=== PATIENT | female | born 1980 | race Caucasian/White ===

== ENCOUNTER 2019-07-22 16:39 | Inpatient (IN) | payer SELFPAY ==
--- NOTE | 2019-07-22 16:56 | EDM.PDOC ---
<Venkatesh Marroquin - Last Filed: 07/22/19 20:07> ED HPI GENERAL MEDICAL PROBLEM - General Chief Complaint: General Stated Complaint: LUMP IN RT BREAST, BLOOD IN URINE Time Seen by Provider: 07/22/19 16:45 - Related Data Allergies Allergy/AdvReac Type Severity Reaction Status Date / Time alprazolam [From Xanax] Allergy Swelling Verified 07/22/19 22:29 aripiprazole [From Abilify] Allergy Irritabilit Verified 07/22/19 22:29 y quetiapine [From Seroquel] Allergy Other Verified 07/22/19 22:29 Home Meds: Home Meds . [No Known Home Meds] 07/22/19 [History] Course - Vital Signs Text/Narrative:: Patient's emergency department course is been relatively unremarkable lipase came [place] [facility] CT abdomen and pelvis was remarkable for gallbladder wall thickening and isolated gallstone along with pericholecystic fluid there was no intraductal dilatation case was discussed with general surgery was consult. I also discussed case with Hospital graciously accepted patient Last Recorded V/S: Last Vital Signs Temp 98.4 F 07/23/19 07:47 Pulse 72 07/23/19 07:47 Resp 18 07/23/19 07:47 BP 113/69 07/23/19 07:47 Pulse Ox 98 07/23/19 07:47 - Orders/Labs/Meds Orders: Active Orders 24 hr Category Date Time Status CULTURE URINE [RM] Stat Lab 07/22/19 19:10 Received Medication Orders Ciprofloxacin/Dextrose 400 mg/ (Premix) 200 mls @ 200 mls/hr IV Q12H [facility] Last Admin: 07/22/19 20:42 Dose: 200 mls/hr Metronidazole 500 mg/ Premix 100 mls @ 100 mls/hr IV QID [facility] Last Admin: 07/23/19 05:33 Dose: 100 mls/hr Infusion: 07/23/19 00:42 Dose: 100 mls/hr Admin: 07/22/19 23:42 Dose: 100 mls/hr Sodium Chloride (Normal Saline) 1,000 mls @ 999 mls/hr IV BOLUS CINDY Sodium Chloride (Normal Saline) 1,000 mls @ 200 mls/hr IV ASDIRECTED [facility] Last Admin: 07/23/19 06:39 Dose: 200 mls/hr Infusion: 07/23/19 06:21 Dose: 200 mls/hr Admin: 07/23/19 01:21 Dose: 200 mls/hr Morphine Sulfate (Morphine) 2 mg IVPUSH Q2H PRN PRN Reason: Pain (severe 7-10) Stop: 07/23/19 20:36 Last Admin: 07/23/19 04:12 Dose: 2 mg Ondansetron HCl (Zofran) 4 mg IVPUSH Q4H PRN PRN Reason: Nausea Last Admin: 07/23/19 04:13 Dose: 4 mg Labs: Laboratory Tests 07/22/19 07/22/19 07/22/19 Range/Units 17:13 17:13 17:13 WBC 8.41 (4.0-11.0) K/uL RBC 4.60 (4.30-5.90) M/uL Hgb 13.1 (12.0-16.0) g/dL Hct 40.3 (36.0-46.0) % MCV 87.6 (80.0-98.0) fL MCH 28.5 (27.0-32.0) pg MCHC 32.5 (31.0-37.0) g/dL RDW Std Deviation 44.2 (28.0-62.0) fl RDW Coeff of Julien 14 (11.0-15.0) % Plt Count 298 (150-400) K/uL MPV 11.30 (7.40-12.00) fL Neut % (Auto) 59.8 (48.0-80.0) % Lymph % (Auto) 29.6 (16.0-40.0) % [place] % (Auto) 7.1 (0.0-15.0) % Eos % (Auto) 2.9 (0.0-7.0) % Baso % (Auto) 0.6 (0.0-1.5) % Neut # (Auto) 5.0 (1.4-5.7) K/uL Lymph # (Auto) 2.5 H (0.6-2.4) K/uL [place] # (Auto) 0.6 (0.0-0.8) K/uL Eos # (Auto) 0.2 (0.0-0.7) K/uL Baso # (Auto) 0.1 (0.0-0.1) K/uL Nucleated RBC % 0.0 /100WBC Nucleated RBCs # 0 K/uL Sodium 137 (136-145) mmol/L Potassium 3.4 L (3.5-5.1) mmol/L Chloride 104 (98-107) mmol/L Carbon Dioxide 23.5 (21.0-32.0) mmol/L BUN 10 (7.0-18.0) mg/dL Creatinine 0.9 (0.6-1.0) mg/dL Est Cr Clr Drug Dosing 93.45 mL/min Estimated GFR (MDRD) > 60.0 ml/min Glucose 91 (74-106) mg/dL Calcium 8.6 (8.5-10.1) mg/dL Total Bilirubin 3.7 H (0.2-1.0) mg/dL AST 294 H (15-37) IU/L ALT 335 H (14-63) IU/L Alkaline Phosphatase 152 H (46-116) U/L Total Protein 7.2 (6.4-8.2) g/dL Albumin 3.5 (3.4-5.0) g/dL Globulin 3.7 (2.6-4.0) g/dL Albumin/Globulin Ratio 0.9 (0.9-1.6) Lipase 7766 H (73-393) U/L Urine Color Urine Appearance Urine pH (5.0-8.0) Ur Specific [place] (1.001-1.035) Urine Protein (NEGATIVE) mg/dL Urine Glucose (UA) (NEGATIVE) mg/dL Urine Ketones (NEGATIVE) mg/dL Urine Occult Blood (NEGATIVE) Urine Nitrite (NEGATIVE) Urine Bilirubin (NEGATIVE) Urine Ictotest Urine Urobilinogen (<2.0) EU/dL Ur Leukocyte Esterase (NEGATIVE) Urine RBC (0-2/HPF) Urine WBC (0-5/HPF) Ur Epithelial Cells (NONE-FEW) Urine Bacteria (NEGATIVE) Urine Mucus (NONE-MOD) 07/22/19 Range/Units 19:10 WBC (4.0-11.0) K/uL RBC (4.30-5.90) M/uL Hgb (12.0-16.0) g/dL Hct (36.0-46.0) % MCV (80.0-98.0) fL MCH (27.0-32.0) pg MCHC (31.0-37.0) g/dL RDW Std Deviation (28.0-62.0) fl RDW Coeff of Julien (11.0-15.0) % Plt Count (150-400) K/uL MPV (7.40-12.00) fL Neut % (Auto) (48.0-80.0) % Lymph % (Auto) (16.0-40.0) % [place] % (Auto) (0.0-15.0) % Eos % (Auto) (0.0-7.0) % Baso % (Auto) (0.0-1.5) % Neut # (Auto) (1.4-5.7) K/uL Lymph # (Auto) (0.6-2.4) K/uL [place] # (Auto) (0.0-0.8) K/uL Eos # (Auto) (0.0-0.7) K/uL Baso # (Auto) (0.0-0.1) K/uL Nucleated RBC % /100WBC Nucleated RBCs # K/uL Sodium (136-145) mmol/L Potassium (3.5-5.1) mmol/L Chloride (98-107) mmol/L Carbon Dioxide (21.0-32.0) mmol/L BUN (7.0-18.0) mg/dL Creatinine (0.6-1.0) mg/dL Est Cr Clr Drug Dosing mL/min Estimated GFR (MDRD) ml/min Glucose (74-106) mg/dL Calcium (8.5-10.1) mg/dL Total Bilirubin (0.2-1.0) mg/dL AST (15-37) IU/L ALT (14-63) IU/L Alkaline Phosphatase (46-116) U/L Total Protein (6.4-8.2) g/dL Albumin (3.4-5.0) g/dL Globulin (2.6-4.0) g/dL Albumin/Globulin Ratio (0.9-1.6) Lipase (73-393) U/L Urine Color YELLOW Urine Appearance HAZY Urine pH 5.0 (5.0-8.0) Ur Specific [place] 1.010 (1.001-1.035) Urine Protein NEGATIVE (NEGATIVE) mg/dL Urine Glucose (UA) NEGATIVE (NEGATIVE) mg/dL Urine Ketones NEGATIVE (NEGATIVE) mg/dL Urine Occult Blood NEGATIVE (NEGATIVE) Urine Nitrite NEGATIVE (NEGATIVE) Urine Bilirubin SMALL H (NEGATIVE) Urine Ictotest POSITIVE Urine Urobilinogen 0.2 (<2.0) EU/dL Ur Leukocyte Esterase TRACE H (NEGATIVE) Urine RBC 0-1 (0-2/HPF) Urine WBC 1-3 (0-5/HPF) Ur Epithelial Cells FEW (NONE-FEW) Urine Bacteria FEW (NEGATIVE) Urine Mucus LIGHT (NONE-MOD) Meds: Medications Generic Name Dose Route Start Last Admin Trade Name Freq PRN Reason Stop Dose Admin Ciprofloxacin/Dextrose 400 mg/ 200 mls @ 200 mls/hr 07/22/19 20:45 07/22/19 20:42 Premix IV 200 mls/hr Q12H CINDY Administration Metronidazole 500 mg/ Premix 100 mls @ 100 mls/hr 07/23/19 00:00 07/23/19 05: 33 IV 100 mls/hr QID CINYD Administration Sodium Chloride 1,000 mls @ 999 mls/hr 07/22/19 20:45 Normal Saline IV BOLUS CINDY Sodium Chloride 1,000 mls @ 200 mls/hr 07/22/19 20:45 07/23/19 06:39 Normal Saline IV 200 mls/hr ASDIRECTED CINDY Administration Morphine Sulfate 2 mg 07/22/19 20:35 07/23/19 04:12 Morphine IVPUSH 07/23/19 20:36 2 mg Q2H PRN Administration Pain (severe 7-10) Ondansetron HCl 4 mg 07/22/19 20:35 07/23/19 04:13 Zofran IVPUSH 4 mg Q4H PRN Administration Nausea Discontinued Medications Generic Name Dose Route Start Last Admin Trade Name Freq PRN Reason Stop Dose Admin Hydromorphone HCl 1 mg 07/22/19 20:08 07/22/19 20:14 Dilaudid IVPUSH 07/22/19 20:09 1 mg ONETIME ONE Administration Sodium Chloride 1,000 mls @ 999 mls/hr 07/22/19 18:19 07/22/19 18:30 Normal Saline IV 07/22/19 19:19 999 mls/hr STAT ONE Administration Sodium Chloride 1,000 mls @ 999 mls/hr 07/22/19 20:07 07/22/19 20:14 Normal Saline IV 07/22/19 21:07 999 mls/hr .Bolus ONE Administration Iopamidol 100 ml 07/22/19 19:04 07/22/19 19:05 Isovue Multipack-370 (76%) IVPUSH 07/22/19 19:05 100 ml ONETIME STA Administration Ketorolac Tromethamine 30 mg 07/22/19 18:19 07/22/19 18:30 Toradol IVPUSH 07/22/19 18:20 30 mg ONETIME ONE Administration Ondansetron HCl 4 mg 07/22/19 17:00 07/22/19 17:41 Zofran Odt PO 07/22/19 17:01 4 mg ONETIME ONE Administration Ondansetron HCl 4 mg 07/22/19 20:08 07/22/19 20:14 Zofran IVPUSH 07/22/19 20:09 4 mg ONETIME ONE Administration Departure - Departure Time of Disposition: 20:10 Disposition: Admitted As Inpatient 68 Condition: Good Clinical Impression: Pancreatitis, Cholecystitis - Discharge Information - My Orders Last 24 Hours: My Active Orders 07/22/19 19:10 CULTURE URINE [RM] Stat - Assessment/Plan Last 24 Hours: My Active Orders 07/22/19 19:10 CULTURE URINE [RM] Stat <Vivian Pedraza - Last Filed: 07/23/19 08:03> ED HPI GENERAL MEDICAL PROBLEM - General Source of Information: Reports: Patient History Limitations: Reports: No Limitations - History of Present Illness INITIAL COMMENTS - FREE TEXT/NARRATIVE: HISTORY AND PHYSICAL: History of present illness: Patient is a 38 year-old female who presents to the emergency room today with complaints of nausea, vomiting and discolored stools. She reports over the past 2 days she has had some mild nausea and one episode of vomiting earlier today. She did notice when she voided yesterday that she had some blood-tinged colored urine which was concerning to her. She states that the urine color has improved today as she has been drinking more water. While at work she states she generally felt nauseated and did have one episode of vomiting. 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 Patient denies any fever, chills, headache, change in vision, syncope or near syncope. Denies any chest pain, back pain, shortness of breath or cough. Denies any abdominal pain, diarrhea, constipation or dysuria. Has not noted any blood stool. Patient has been eating and drinking appropriately. Review of systems: As per history of present illness and below otherwise all systems reviewed and negative. Past medical history: As per history of present illness and as reviewed below otherwise noncontributory. Surgical history: As per history of present illness and as reviewed below otherwise noncontributory. Social history: See social history for further information Family history: As per history of present illness and as reviewed below otherwise noncontributory. Physical exam: General: Well-developed and well-nourished 38-year-old female. Alert and oriented. Nontoxic appearing and in no acute distress. HEENT: Atraumatic, normocephalic, pupils equal and reactive bilaterally, negative for conjunctival pallor or scleral icterus, mucous membranes moist, TMs normal bilaterally, throat clear, neck supple, nontender, trachea midline. No drooling or trismus noted. No meningeal signs. No hot potato voice noted. Lungs: Clear to auscultation, breath sounds equal bilaterally, chest nontender. Heart: S1S2, regular rate and rhythm without overt murmur Abdomen: Soft, nondistended, nontender. Negative for masses or hepatosplenomegaly. Negative for costovertebral tenderness. Pelvis: Stable nontender. Skin: Intact, warm, dry. No lesions or rashes noted. Extremities: Atraumatic, moves all extremities per self without difficulty or deficits, negative for cords or calf pain. Neurovascular unremarkable. Neuro: Awake, alert, oriented. Cranial nerves II through XII unremarkable. Cerebellum unremarkable. Motor and sensory unremarkable throughout. Exam nonfocal. Notes: On a secondary note the patient does want to mention that she has noticed a small lump to her right breast for approximately 1-2 months. She states that her main concern today was her nausea, vomiting and discolored stools but since she was in the emergency room did want to bring it to our attention. The area of concern is at the 8-o'clock position and is movable, nontender to palpation. No surrounding erythema, dimpling or skin disruption is noted. As this is not an acute finding and does not appear to be needing an ultrasound at this time, I did give her information of providers that she should follow-up with for this manner. Patient's physical exam is within normal limits, no abdominal tenderness with palpation. She does have some mild nausea, will give zofran and do basic labs. Dr Marroquin was briefed on this patient and he will follow the labs results and disposition appropriately. Diagnostics: CBC, CMP, UA, HCGU Therapeutics: Zofran Impression: Cholecystitis Pancreatitis Plan: Inpatient admission Definitive disposition and diagnosis as appropriate pending reevaluation and review of above. Past Medical History Psychiatric History: Reports: Anxiety Social & Family History - Family History Family Medical History: Noncontributory ED ROS GENERAL - Review of Systems Review Of Systems: ROS reveals no pertinent complaints other than HPI. ED EXAM, GENERAL - Physical Exam Exam: See Below (See dictation) Course - Vital Signs Last Recorded V/S: Last Vital Signs Temp 98.4 F 07/23/19 07:47 Pulse 72 07/23/19 07:47 Resp 18 07/23/19 07:47 BP 113/69 07/23/19 07:47 Pulse Ox 98 07/23/19 07:47 - Orders/Labs/Meds Labs: Laboratory Tests 07/22/19 07/22/19 07/22/19 Range/Units 17:13 17:13 17:13 WBC 8.41 (4.0-11.0) K/uL RBC 4.60 (4.30-5.90) M/uL Hgb 13.1 (12.0-16.0) g/dL Hct 40.3 (36.0-46.0) % MCV 87.6 (80.0-98.0) fL MCH 28.5 (27.0-32.0) pg MCHC 32.5 (31.0-37.0) g/dL RDW Std Deviation 44.2 (28.0-62.0) fl RDW Coeff of Julien 14 (11.0-15.0) % Plt Count 298 (150-400) K/uL MPV 11.30 (7.40-12.00) fL Neut % (Auto) 59.8 (48.0-80.0) % Lymph % (Auto) 29.6 (16.0-40.0) % [place] % (Auto) 7.1 (0.0-15.0) % Eos % (Auto) 2.9 (0.0-7.0) % Baso % (Auto) 0.6 (0.0-1.5) % Neut # (Auto) 5.0 (1.4-5.7) K/uL Lymph # (Auto) 2.5 H (0.6-2.4) K/uL [place] # (Auto) 0.6 (0.0-0.8) K/uL Eos # (Auto) 0.2 (0.0-0.7) K/uL Baso # (Auto) 0.1 (0.0-0.1) K/uL Nucleated RBC % 0.0 /100WBC Nucleated RBCs # 0 K/uL Sodium 137 (136-145) mmol/L Potassium 3.4 L (3.5-5.1) mmol/L Chloride 104 (98-107) mmol/L Carbon Dioxide 23.5 (21.0-32.0) mmol/L BUN 10 (7.0-18.0) mg/dL Creatinine 0.9 (0.6-1.0) mg/dL Est Cr Clr Drug Dosing 93.45 mL/min Estimated GFR (MDRD) > 60.0 ml/min Glucose 91 (74-106) mg/dL Calcium 8.6 (8.5-10.1) mg/dL Total Bilirubin 3.7 H (0.2-1.0) mg/dL AST 294 H (15-37) IU/L ALT 335 H (14-63) IU/L Alkaline Phosphatase 152 H (46-116) U/L Total Protein 7.2 (6.4-8.2) g/dL Albumin 3.5 (3.4-5.0) g/dL Globulin 3.7 (2.6-4.0) g/dL Albumin/Globulin Ratio 0.9 (0.9-1.6) Lipase 7766 H (73-393) U/L Urine Color Urine Appearance Urine pH (5.0-8.0) Ur Specific [place] (1.001-1.035) Urine Protein (NEGATIVE) mg/dL Urine Glucose (UA) (NEGATIVE) mg/dL Urine Ketones (NEGATIVE) mg/dL Urine Occult Blood (NEGATIVE) Urine Nitrite (NEGATIVE) Urine Bilirubin (NEGATIVE) Urine Ictotest Urine Urobilinogen (<2.0) EU/dL Ur Leukocyte Esterase (NEGATIVE) Urine RBC (0-2/HPF) Urine WBC (0-5/HPF) Ur Epithelial Cells (NONE-FEW) Urine Bacteria (NEGATIVE) Urine Mucus (NONE-MOD) 07/22/19 Range/Units 19:10 WBC (4.0-11.0) K/uL RBC (4.30-5.90) M/uL Hgb (12.0-16.0) g/dL Hct (36.0-46.0) % MCV (80.0-98.0) fL MCH (27.0-32.0) pg MCHC (31.0-37.0) g/dL RDW Std Deviation (28.0-62.0) fl RDW Coeff of Julien (11.0-15.0) % Plt Count (150-400) K/uL MPV (7.40-12.00) fL Neut % (Auto) (48.0-80.0) % Lymph % (Auto) (16.0-40.0) % [place] % (Auto) (0.0-15.0) % Eos % (Auto) (0.0-7.0) % Baso % (Auto) (0.0-1.5) % Neut # (Auto) (1.4-5.7) K/uL Lymph # (Auto) (0.6-2.4) K/uL [place] # (Auto) (0.0-0.8) K/uL Eos # (Auto) (0.0-0.7) K/uL Baso # (Auto) (0.0-0.1) K/uL Nucleated RBC % /100WBC Nucleated RBCs # K/uL Sodium (136-145) mmol/L Potassium (3.5-5.1) mmol/L Chloride (98-107) mmol/L Carbon Dioxide (21.0-32.0) mmol/L BUN (7.0-18.0) mg/dL Creatinine (0.6-1.0) mg/dL Est Cr Clr Drug Dosing mL/min Estimated GFR (MDRD) ml/min Glucose (74-106) mg/dL Calcium (8.5-10.1) mg/dL Total Bilirubin (0.2-1.0) mg/dL AST (15-37) IU/L ALT (14-63) IU/L Alkaline Phosphatase (46-116) U/L Total Protein (6.4-8.2) g/dL Albumin (3.4-5.0) g/dL Globulin (2.6-4.0) g/dL Albumin/Globulin Ratio (0.9-1.6) Lipase (73-393) U/L Urine Color YELLOW Urine Appearance HAZY Urine pH 5.0 (5.0-8.0) Ur Specific [place] 1.010 (1.001-1.035) Urine Protein NEGATIVE (NEGATIVE) mg/dL Urine Glucose (UA) NEGATIVE (NEGATIVE) mg/dL Urine Ketones NEGATIVE (NEGATIVE) mg/dL Urine Occult Blood NEGATIVE (NEGATIVE) Urine Nitrite NEGATIVE (NEGATIVE) Urine Bilirubin SMALL H (NEGATIVE) Urine Ictotest POSITIVE Urine Urobilinogen 0.2 (<2.0) EU/dL Ur Leukocyte Esterase TRACE H (NEGATIVE) Urine RBC 0-1 (0-2/HPF) Urine WBC 1-3 (0-5/HPF) Ur Epithelial Cells FEW (NONE-FEW) Urine Bacteria FEW (NEGATIVE) Urine Mucus LIGHT (NONE-MOD) Meds: Medications Generic Name Dose Route Start Last Admin Trade Name Freq PRN Reason Stop Dose Admin Ciprofloxacin/Dextrose 400 mg/ 200 mls @ 200 mls/hr 07/22/19 20:45 07/22/19 20:42 Premix IV 200 mls/hr Q12H CINDY Administration Metronidazole 500 mg/ Premix 100 mls @ 100 mls/hr 07/23/19 00:00 07/23/19 05: 33 IV 100 mls/hr QID CINDY Administration Sodium Chloride 1,000 mls @ 999 mls/hr 07/22/19 20:45 Normal Saline IV BOLUS CINDY Sodium Chloride 1,000 mls @ 200 mls/hr 07/22/19 20:45 07/23/19 06:39 Normal Saline IV 200 mls/hr ASDIRECTED CINDY Administration Morphine Sulfate 2 mg 07/22/19 20:35 07/23/19 04:12 Morphine IVPUSH 07/23/19 20:36 2 mg Q2H PRN Administration Pain (severe 7-10) Ondansetron HCl 4 mg 07/22/19 20:35 07/23/19 04:13 Zofran IVPUSH 4 mg Q4H PRN Administration Nausea Discontinued Medications Generic Name Dose Route Start Last Admin Trade Name Freq PRN Reason Stop Dose Admin Hydromorphone HCl 1 mg 07/22/19 20:08 07/22/19 20:14 Dilaudid IVPUSH 07/22/19 20:09 1 mg ONETIME ONE Administration Sodium Chloride 1,000 mls @ 999 mls/hr 07/22/19 18:19 07/22/19 18:30 Normal Saline IV 07/22/19 19:19 999 mls/hr STAT ONE Administration Sodium Chloride 1,000 mls @ 999 mls/hr 07/22/19 20:07 07/22/19 20:14 Normal Saline IV 07/22/19 21:07 999 mls/hr .Bolus ONE Administration Iopamidol 100 ml 07/22/19 19:04 07/22/19 19:05 Isovue Multipack-370 (76%) IVPUSH 07/22/19 19:05 100 ml ONETIME STA Administration Ketorolac Tromethamine 30 mg 07/22/19 18:19 07/22/19 18:30 Toradol IVPUSH 07/22/19 18:20 30 mg ONETIME ONE Administration Ondansetron HCl 4 mg 07/22/19 17:00 07/22/19 17:41 Zofran Odt PO 07/22/19 17:01 4 mg ONETIME ONE Administration Ondansetron HCl 4 mg 07/22/19 20:08 07/22/19 20:14 Zofran IVPUSH 07/22/19 20:09 4 mg ONETIME ONE Administration
[2019-07-22] MEDS ORDERED: Ondansetron 4 MG Tab.DIS PO ONE (17:00)
[2019-07-22 17:53] LABS: BLOOD UREA NITROGEN,BUN 10 mg/dL (7.0-18.0); CARBON DIOXIDE,CO2 23.5 mmol/L (21.0-32.0); CHLORIDE,CL 104 mmol/L (98-107); GLUCOSE RANDOM 91 mg/dL (74-106); POTASSIUM,K 3.4 mmol/L (3.5-5.1); SODIUM,NA 137 mmol/L (136-145)
[2019-07-22] MEDS ORDERED: Ketorolac 30 MG/ML SDV IVPUSH ONE (18:19)
[2019-07-22] MEDS ORDERED: Sodium Chloride 0.9% 1,000 ML IV ONE ×2 (18:19→20:07)
[2019-07-22] MEDS ORDERED: Iopamidol 755 MG/ML 500 ML Multipack Bottle IVPUSH STA (19:04)
--- NOTE | 2019-07-22 19:43 | CT ---
Indication: Abe colored stool. Vomiting. Right breast lump. Technique: Multiple contiguous axial images were obtained from the lung bases through the symphysis pubis after the intravenous administration of 100 milliliters Isovue 370. Please note that all CT scans at this facility use dose modulation, iterative reconstruction, and/or weight-based dosing when appropriate to reduce radiation dose to as low as reasonably achievable. Comparison: None Findings: The lung bases are clear. No infiltrate, pleural effusion, or pneumothorax is identified. No definite right breast masses identified. A mammogram is recommended for the patient`s clinical symptoms. Heart is normal in size. No pericardial effusions identified. A gallstone is identified. Thickening of the wall of the gallbladder is identified. Pericholecystic free fluid is identified. No intrahepatic biliary ductal dilatation is identified. The spleen, pancreas, adrenals, and kidneys are normal. No hydronephrosis is identified. In the pelvis, the urinary bladder is normal. The uterus is grossly normal. The small and large bowel are normal in caliber. The appendix is normal in caliber. No free air or free fluid is identified within the abdomen or pelvis. The aorta is normal in caliber. No lytic or blastic lesions of the spine are identified. Impression: Thickening and abnormal enhancement of the wall of the gallbladder. Pericholecystic free fluid and gallstone are identified. No intrahepatic biliary ductal dilatation is identified. Consideration should be given to an ultrasound of the right upper quadrant. Mammography is recommended for the patient`s clinical symptoms of right breast mass. Please note that all CT scans at this facility use dose modulation, iterative reconstruction, and/or weight-based dosing when appropriate to reduce radiation dose to as low as reasonably achievable. Dictated by Khalida Beatty MD @ Jul 22 2019 7:39PM Signed by Dr. Khalida Beatty @ Jul 22 2019 7:41PM
[2019-07-22] MEDS ORDERED: Ondansetron 4 MG/2 ML SDV IVPUSH ONE (20:08)
[2019-07-22] MEDS ORDERED: HYDROmorphone 1 MG/ML Syringe IVPUSH ONE (20:08)
[2019-07-22] MEDS: Ciprofloxacin in D5W 400 MG in Premix Bag 1 BAG IV SCH ×2 (20:42)
--- NOTE | 2019-07-22 20:44 | PCM.HP.2 ---
H&P History of Present Illness - General Date of Service: 07/22/19 Admit Problem/Dx: Admission Diagnosis/Problem Admission Diagnosis/Problem Pancreatitis - History of Present Illness Initial Comments - Free Text/Narative: 38 yo female who presents to the ED with complaint of nausea and vomiting for past two day. She also reports RUQ pain for the past year. The pain occurs everyday after eating. She also reports diarrhea most days for the past year. She had attributed some of her symptoms to grieving from her husbands this year. She denies any fevers currently. - Related Data Allergies/Adverse Reactions: Allergies Allergy/AdvReac Type Severity Reaction Status Date / Time alprazolam [From Xanax] Allergy Swelling Verified 07/22/19 16:54 aripiprazole [From Abilify] Allergy Irritabilit Verified 07/22/19 16:54 y quetiapine [From Seroquel] Allergy Other Verified 07/22/19 16:54 Home Medications: Home Meds . [No Known Home Meds] 07/22/19 [History] Past Medical History Psychiatric History: Reports: Anxiety - Infectious Disease History Infectious Disease History: Reports: Chicken Pox Social & Family History - Family History Family Medical History: Noncontributory - Tobacco Use Smoking Status *Q: Light Tobacco Smoker Years of Tobacco use: 20 Packs/Tins Daily: 0.2 - Caffeine Use Caffeine Use: Reports: Coffee - Recreational Drug Use Recreational Drug Use: No H&P Review of Systems - Review of Systems: Review Of Systems: ROS reveals no pertinent complaints other than HPI. Exam - Exam Exam: See Below - Vital Signs Vital Signs: Last Vital Signs Temp 36.5 C 07/22/19 20:05 Pulse 72 07/22/19 20:05 Resp 18 07/22/19 20:05 BP 127/70 07/22/19 20:05 Pulse Ox 99 07/22/19 20:05 Weight: 88.451 kg - Exam General: Alert, Oriented HEENT: Mucosa Moist & [place] Neck: Supple Lungs: Clear to Auscultation, Normal Respiratory Effort Cardiovascular: Regular Rate, Regular Rhythm GI/Abdominal Exam: Normal Bowel Sounds, Soft, No Distention, Tender (RUQ) Extremities: Non-Tender, No Pedal Edema Skin: Warm, Dry, Intact - Patient Data Lab Results Last 24 hrs: Laboratory Results - last 24 hr 07/22/19 07/22/19 07/22/19 Range/Units 17:13 17:13 17:13 WBC 8.41 (4.0-11.0) K/uL RBC 4.60 (4.30-5.90) M/uL Hgb 13.1 (12.0-16.0) g/dL Hct 40.3 (36.0-46.0) % MCV 87.6 (80.0-98.0) fL MCH 28.5 (27.0-32.0) pg MCHC 32.5 (31.0-37.0) g/dL RDW Std Deviation 44.2 (28.0-62.0) fl RDW Coeff of Julien 14 (11.0-15.0) % Plt Count 298 (150-400) K/uL MPV 11.30 (7.40-12.00) fL Neut % (Auto) 59.8 (48.0-80.0) % Lymph % (Auto) 29.6 (16.0-40.0) % [place] % (Auto) 7.1 (0.0-15.0) % Eos % (Auto) 2.9 (0.0-7.0) % Baso % (Auto) 0.6 (0.0-1.5) % Neut # (Auto) 5.0 (1.4-5.7) K/uL Lymph # (Auto) 2.5 H (0.6-2.4) K/uL [place] # (Auto) 0.6 (0.0-0.8) K/uL Eos # (Auto) 0.2 (0.0-0.7) K/uL Baso # (Auto) 0.1 (0.0-0.1) K/uL Nucleated RBC % 0.0 /100WBC Nucleated RBCs # 0 K/uL Sodium 137 (136-145) mmol/L Potassium 3.4 L (3.5-5.1) mmol/L Chloride 104 (98-107) mmol/L Carbon Dioxide 23.5 (21.0-32.0) mmol/L BUN 10 (7.0-18.0) mg/dL Creatinine 0.9 (0.6-1.0) mg/dL Est Cr Clr Drug Dosing 93.45 mL/min Estimated GFR (MDRD) > 60.0 ml/min Glucose 91 (74-106) mg/dL Calcium 8.6 (8.5-10.1) mg/dL Total Bilirubin 3.7 H (0.2-1.0) mg/dL AST 294 H (15-37) IU/L ALT 335 H (14-63) IU/L Alkaline Phosphatase 152 H (46-116) U/L Total Protein 7.2 (6.4-8.2) g/dL Albumin 3.5 (3.4-5.0) g/dL Globulin 3.7 (2.6-4.0) g/dL Albumin/Globulin Ratio 0.9 (0.9-1.6) Lipase 7766 H (73-393) U/L Urine Color Urine Appearance Urine pH (5.0-8.0) Ur Specific [place] (1.001-1.035) Urine Protein (NEGATIVE) mg/dL Urine Glucose (UA) (NEGATIVE) mg/dL Urine Ketones (NEGATIVE) mg/dL Urine Occult Blood (NEGATIVE) Urine Nitrite (NEGATIVE) Urine Bilirubin (NEGATIVE) Urine Ictotest Urine Urobilinogen (<2.0) EU/dL Ur Leukocyte Esterase (NEGATIVE) Urine RBC (0-2/HPF) Urine WBC (0-5/HPF) Ur Epithelial Cells (NONE-FEW) Urine Bacteria (NEGATIVE) Urine Mucus (NONE-MOD) 07/22/19 Range/Units 19:10 WBC (4.0-11.0) K/uL RBC (4.30-5.90) M/uL Hgb (12.0-16.0) g/dL Hct (36.0-46.0) % MCV (80.0-98.0) fL MCH (27.0-32.0) pg MCHC (31.0-37.0) g/dL RDW Std Deviation (28.0-62.0) fl RDW Coeff of Julien (11.0-15.0) % Plt Count (150-400) K/uL MPV (7.40-12.00) fL Neut % (Auto) (48.0-80.0) % Lymph % (Auto) (16.0-40.0) % [place] % (Auto) (0.0-15.0) % Eos % (Auto) (0.0-7.0) % Baso % (Auto) (0.0-1.5) % Neut # (Auto) (1.4-5.7) K/uL Lymph # (Auto) (0.6-2.4) K/uL [place] # (Auto) (0.0-0.8) K/uL Eos # (Auto) (0.0-0.7) K/uL Baso # (Auto) (0.0-0.1) K/uL Nucleated RBC % /100WBC Nucleated RBCs # K/uL Sodium (136-145) mmol/L Potassium (3.5-5.1) mmol/L Chloride (98-107) mmol/L Carbon Dioxide (21.0-32.0) mmol/L BUN (7.0-18.0) mg/dL Creatinine (0.6-1.0) mg/dL Est Cr Clr Drug Dosing mL/min Estimated GFR (MDRD) ml/min Glucose (74-106) mg/dL Calcium (8.5-10.1) mg/dL Total Bilirubin (0.2-1.0) mg/dL AST (15-37) IU/L ALT (14-63) IU/L Alkaline Phosphatase (46-116) U/L Total Protein (6.4-8.2) g/dL Albumin (3.4-5.0) g/dL Globulin (2.6-4.0) g/dL Albumin/Globulin Ratio (0.9-1.6) Lipase (73-393) U/L Urine Color YELLOW Urine Appearance HAZY Urine pH 5.0 (5.0-8.0) Ur Specific [place] 1.010 (1.001-1.035) Urine Protein NEGATIVE (NEGATIVE) mg/dL Urine Glucose (UA) NEGATIVE (NEGATIVE) mg/dL Urine Ketones NEGATIVE (NEGATIVE) mg/dL Urine Occult Blood NEGATIVE (NEGATIVE) Urine Nitrite NEGATIVE (NEGATIVE) Urine Bilirubin SMALL H (NEGATIVE) Urine Ictotest POSITIVE Urine Urobilinogen 0.2 (<2.0) EU/dL Ur Leukocyte Esterase TRACE H (NEGATIVE) Urine RBC 0-1 (0-2/HPF) Urine WBC 1-3 (0-5/HPF) Ur Epithelial Cells FEW (NONE-FEW) Urine Bacteria FEW (NEGATIVE) Urine Mucus LIGHT (NONE-MOD) Result Diagrams: 07/22/19 17:13 07/22/19 17:13 Problem List Initiated/Reviewed/Updated: Yes Orders Last 24hrs: Active Orders 24 hr Category Date Time Status Patient Status [ADT] Stat ADT 07/22/19 20:11 Active Antiembolic Devices [RC] PER UNIT ROUTINE Care 07/22/19 20:35 Ordered Notify Provider Consults [RC] ASDIRECTED Care 07/22/19 20:13 Active Oxygen Therapy [RC] PRN Care 07/22/19 20:34 Ordered Up ad Meeta [RC] ASDIRECTED Care 07/22/19 20:34 Ordered VTE/DVT Education [RC] PER UNIT ROUTINE Care 07/22/19 20:34 Ordered Vital Signs [RC] Q4H Care 07/22/19 20:34 Ordered Consult to Physician [CONS] Stat Cons 07/22/19 20:12 Active Nothing per Oral Now Diet [DIET] Diet 07/22/19 Breakfast Ordered Abdomen Comp [US] AM Exams 07/23/19 05:11 Ordered CBC WITH AUTO DIFF [HEME] AM Lab 07/23/19 05:11 Ordered COMPREHENSIVE METABOLIC PN,CMP [CHEM] AM Lab 07/23/19 05:11 Ordered CULTURE URINE [RM] Stat Lab 07/22/19 19:10 Received LIPASE [CHEM] AM Lab 07/23/19 05:11 Ordered LIPID PANEL [CHEM] AM Lab 07/23/19 05:11 Ordered Ciprofloxacin in D5W [Cipro in D5W 400 MG/200 ML] 400 Med 07/22/19 20:45 Ordered mg Premix Bag 1 bag IV Q12H Morphine Med 07/22/19 20:35 Ordered 2 mg IVPUSH Q2H PRN Ondansetron [Zofran] Med 07/22/19 20:35 Ordered 4 mg IVPUSH Q4H PRN Sodium Chloride 0.9% [Normal Saline] 1,000 ml Med 07/22/19 20:07 Active IV .Bolus Sodium Chloride 0.9% [Normal Saline] 1,000 ml Med 07/22/19 20:45 Ordered IV ASDIRECTED Sodium Chloride 0.9% [Normal Saline] 1,000 ml Med 07/22/19 20:45 Ordered IV BOLUS metroNIDAZOLE/Normal Saline [Flagyl 500 MG in NS 100 ML Med 07/23/19 00:00 Ordered ] 500 mg Premix Bag 1 bag IV QID Sequential Compression Device [OM.PC] Per Unit Routine Oth 07/22/19 20:34 Ordered Resuscitation Status Routine Resus Stat 07/22/19 20:34 Ordered Medication Orders Sodium Chloride (Normal Saline) 1,000 mls @ 999 mls/hr IV .Bolus ONE Stop: 07/22/19 21:07 Last Admin: 07/22/19 20:14 Dose: 999 mls/hr Ciprofloxacin/Dextrose 400 mg/ (Premix) 200 mls @ 200 mls/hr IV Q12H CINDY Metronidazole 500 mg/ Premix 100 mls @ 100 mls/hr IV QID CINDY Sodium Chloride (Normal Saline) 1,000 mls @ 999 mls/hr IV BOLUS CINDY Sodium Chloride (Normal Saline) 1,000 mls @ 200 mls/hr IV ASDIRECTED CINDY Morphine Sulfate (Morphine) 2 mg IVPUSH Q2H PRN PRN Reason: Pain (severe 7-10) Stop: 07/23/19 20:36 Ondansetron HCl (Zofran) 4 mg IVPUSH Q4H PRN PRN Reason: Nausea Assessment/Plan Comment:: 38 yo female admitted with acute cholecystitis and gallstone pancreatitis. We will treat with IV fluid resuscitation, Ciprofloxacin, and Flagyl. We will keep NPO with antiemetics and pain control as needed. Abdominal ultrasound has been ordered. Dr. Zuniga has been consulted by Dr. Marroquin in the ED.
[2019-07-22] MEDS ORDERED: Sodium Chloride 0.9% 1,000 ML IV SCH (20:45)
[2019-07-22] MEDS: metroNIDAZOLE/Normal Saline 500 MG in Premix Bag 1 BAG IV SCH (23:42)
[2019-07-23] MEDS: Sodium Chloride 0.9% 1,000 ML IV SCH ×2 (01:21→06:39)
[2019-07-23] MEDS: Morphine 10 MG/ML Syringe IVPUSH PRN ×3 (04:12→15:58)
[2019-07-23] MEDS: Ondansetron 4 MG/2 ML SDV IVPUSH PRN ×2 (04:13→21:53)
[2019-07-23] MEDS: metroNIDAZOLE/Normal Saline 500 MG in Premix Bag 1 BAG IV SCH ×3 (05:33→17:17)
[2019-07-23 05:41] LABS: BLOOD UREA NITROGEN,BUN 6 mg/dL (7.0-18.0); CARBON DIOXIDE,CO2 20.8 mmol/L (21.0-32.0); CHLORIDE,CL 110 mmol/L (98-107); GLUCOSE RANDOM 81 mg/dL (74-106); LIPASE 369 U/L (73-393); POTASSIUM,K 3.1 mmol/L (3.5-5.1); SODIUM,NA 141 mmol/L (136-145)
[2019-07-23] MEDS ORDERED: Sodium Chloride 0.9% with KCl 1,000 ML IV STA (08:04)
[2019-07-23] MEDS ORDERED: Sodium Chloride 0.9% 1,000 ML IV ONE (08:30)
--- NOTE | 2019-07-23 08:59 | PCM.CONS ---
H&P History of Present Illness - General Date of Service: 07/23/19 Admit Problem/Dx: Admission Diagnosis/Problem Admission Diagnosis/Problem Pancreatitis, cholelithiasis Source of Information: Patient History Limitations: Reports: No Limitations - History of Present Illness Initial Comments - Free Text/Narative: 38 y/o female admitted via ER last night with pancreatitis, cholelithiasis, gallbladder wall thickening and pericholecystic fluid. WBC normal. Had been having pain for about two days prior to presentation. 2 episodes of nausea & vomiting yesterday. Had an episode of pancreatitis 15 years ago. Says she didn 't have gallstones at that time. Symptom Onset Date: 07/20/19 Duration of Symptoms: Reports: Day(s): Location: Reports: Abdomen Quality: Reports: Ache, Pressure, Same as Previous Episode Severity: Moderate Improves with: Reports: Rest Worsens with: Reports: Eating, Movement Context: Reports: Sick Contact Associated Symptoms: Reports: Loss of Appetite, Nausea/Vomiting. Denies: Confusion, Chest Pain, Cough, Headaches - Related Data Allergies/Adverse Reactions: Allergies Allergy/AdvReac Type Severity Reaction Status Date / Time alprazolam [From Xanax] Allergy Swelling Verified 07/22/19 22:29 aripiprazole [From Abilify] Allergy Irritabilit Verified 07/22/19 22:29 y quetiapine [From Seroquel] Allergy Other Verified 07/22/19 22:29 Home Medications: Home Meds . [No Known Home Meds] 07/22/19 [History] Past Medical History Gastrointestinal History: Reports: Pancreatitis [employer] History: Reports: , Spontaneous Psychiatric History: Reports: Anxiety Other Psychiatric History: Dissociative Disorder - Infectious Disease History Infectious Disease History: Reports: Chicken Pox - Past Surgical History Other GI Surgeries/Procedures: had pancreatitis in 2009 Female Surgical History: Reports: Tubal Ligation Social & Family History - Family History Family Medical History: Noncontributory - Tobacco Use Smoking Status *Q: Current Some Day Smoker Years of Tobacco use: 23 Packs/Tins Daily: 0.5 Used Tobacco, but Quit: No Second Hand Smoke Exposure: No - Caffeine Use Caffeine Use: Reports: Soda - Alcohol Use Date of Last Drink: 05/02/19 Alcohol Use Frequency: Rarely - Recreational Drug Use Recreational Drug Use: No H&P Review of Systems - Review of Systems: Review Of Systems: See Below General: Reports: Decreased Appetite. Denies: Fever, Chills, Malaise, Weakness , Night Sweats, Weight Loss HEENT: Reports: No Symptoms Pulmonary: Denies: Shortness of Breath, Wheezing Cardiovascular: Denies: Chest Pain, Palpitations, Dyspnea on Exertion, Lightheadedness, Syncope Gastrointestinal: Reports: Abdominal Pain, Diarrhea, Decreased Appetite, Flatus , Nausea, Vomiting, Other (becky colored stools). Denies: Black Stool, Bloody Stool, Constipation Genitourinary: Denies: Dysuria, Frequency, Burning, Pain, Urgency Musculoskeletal: Reports: No Symptoms Skin: Denies: Cyanosis, Jaundice, Mottled, Pallor, Diaphoresis, Change in Color Psychiatric: Reports: Anxiety Neurological: Denies: Confusion, Dizziness, Headache, Numbness, Seizure, Syncope Hematologic/Lymphatic: Reports: No Symptoms Immunologic: Reports: No Symptoms Exam - Exam Exam: See Below - Vital Signs Vital Signs: Last Vital Signs Temp 98.4 F 07/23/19 07:47 Pulse 72 07/23/19 07:47 Resp 18 07/23/19 07:47 BP 113/69 07/23/19 07:47 Pulse Ox 98 07/23/19 07:47 Weight: 199 lb 3.2 oz - Exam Quality Assessment: DVT Prophylaxis. No: Supplemental Oxygen, Urinary Catheter General: Alert, Oriented, Cooperative, Mild Distress HEENT: Conjunctiva Clear, EACs Clear, Hearing Intact, Pupils Equal, Pupils Reactive. No: Scleral Icterus Neck: Supple, Trachea Midline Lungs: Clear to Auscultation, Normal Respiratory Effort Cardiovascular: Regular Rate, Regular Rhythm, Normal S1, Normal S2. No: Tachycardia, Systolic Murmur GI/Abdominal Exam: Normal Bowel Sounds, Soft, No Distention, No Mass, Tender ( epigastricu & RUQ). No: Guarding, Rigid, Rebound (Female) Exam: Deferred Rectal (Female) Exam: Deferred Back Exam: Normal Inspection Extremities: Normal Inspection, Normal Range of Motion Peripheral Pulses: 4+: Posterior Tibial (L), Posterior Tibial (R), Dorsalis Pedis (L), Dorsalis Pedis (R) Skin: Warm, Dry, Intact Neurological: Cranial Nerves Intact, Abnormal Gait Neuro Extensive - Mental Status: Alert, Oriented x3 Psychiatric: Alert, Normal Affect, Normal Mood - Patient Data Lab Results Last 24 hrs: Laboratory Results - last 24 hr 07/22/19 07/22/19 07/22/19 Range/Units 17:13 17:13 17:13 WBC 8.41 (4.0-11.0) K/uL RBC 4.60 (4.30-5.90) M/uL Hgb 13.1 (12.0-16.0) g/dL Hct 40.3 (36.0-46.0) % MCV 87.6 (80.0-98.0) fL MCH 28.5 (27.0-32.0) pg MCHC 32.5 (31.0-37.0) g/dL RDW Std Deviation 44.2 (28.0-62.0) fl RDW Coeff of Julien 14 (11.0-15.0) % Plt Count 298 (150-400) K/uL MPV 11.30 (7.40-12.00) fL Neut % (Auto) 59.8 (48.0-80.0) % Lymph % (Auto) 29.6 (16.0-40.0) % [place] % (Auto) 7.1 (0.0-15.0) % Eos % (Auto) 2.9 (0.0-7.0) % Baso % (Auto) 0.6 (0.0-1.5) % Neut # (Auto) 5.0 (1.4-5.7) K/uL Lymph # (Auto) 2.5 H (0.6-2.4) K/uL [place] # (Auto) 0.6 (0.0-0.8) K/uL Eos # (Auto) 0.2 (0.0-0.7) K/uL Baso # (Auto) 0.1 (0.0-0.1) K/uL Nucleated RBC % 0.0 /100WBC Nucleated RBCs # 0 K/uL Sodium 137 (136-145) mmol/L Potassium 3.4 L (3.5-5.1) mmol/L Chloride 104 (98-107) mmol/L Carbon Dioxide 23.5 (21.0-32.0) mmol/L BUN 10 (7.0-18.0) mg/dL Creatinine 0.9 (0.6-1.0) mg/dL Est Cr Clr Drug Dosing 93.45 mL/min Estimated GFR (MDRD) > 60.0 ml/min Glucose 91 (74-106) mg/dL Calcium 8.6 (8.5-10.1) mg/dL Total Bilirubin 3.7 H (0.2-1.0) mg/dL AST 294 H (15-37) IU/L ALT 335 H (14-63) IU/L Alkaline Phosphatase 152 H (46-116) U/L Total Protein 7.2 (6.4-8.2) g/dL Albumin 3.5 (3.4-5.0) g/dL Globulin 3.7 (2.6-4.0) g/dL Albumin/Globulin Ratio 0.9 (0.9-1.6) Triglycerides (0-200) mg/dL Cholesterol (50-200) mg/dL LDL Cholesterol, Calc (60-180) mg/dL VLDL Cholesterol (5-55) mg/dL HDL Cholesterol (40-60) mg/dL Cholesterol/HDL Ratio (3.3-6.0) Lipase 7766 H (73-393) U/L Urine Color Urine Appearance Urine pH (5.0-8.0) Ur Specific [place] (1.001-1.035) Urine Protein (NEGATIVE) mg/dL Urine Glucose (UA) (NEGATIVE) mg/dL Urine Ketones (NEGATIVE) mg/dL Urine Occult Blood (NEGATIVE) Urine Nitrite (NEGATIVE) Urine Bilirubin (NEGATIVE) Urine Ictotest Urine Urobilinogen (<2.0) EU/dL Ur Leukocyte Esterase (NEGATIVE) Urine RBC (0-2/HPF) Urine WBC (0-5/HPF) Ur Epithelial Cells (NONE-FEW) Urine Bacteria (NEGATIVE) Urine Mucus (NONE-MOD) 07/22/19 07/23/19 07/23/19 Range/Units 19:10 05:10 05:10 WBC 6.10 (4.0-11.0) K/uL RBC 4.03 L (4.30-5.90) M/uL Hgb 11.5 L (12.0-16.0) g/dL Hct 35.3 L (36.0-46.0) % MCV 87.6 (80.0-98.0) fL MCH 28.5 (27.0-32.0) pg MCHC 32.6 (31.0-37.0) g/dL RDW Std Deviation 44.5 (28.0-62.0) fl RDW Coeff of [place]ien 14 (11.0-15.0) % Plt Count 233 (150-400) K/uL MPV 11.20 (7.40-12.00) fL Neut % (Auto) 46.0 L (48.0-80.0) % Lymph % (Auto) 42.1 H (16.0-40.0) % [place] % (Auto) 7.2 (0.0-15.0) % Eos % (Auto) 3.9 (0.0-7.0) % Baso % (Auto) 0.8 (0.0-1.5) % Neut # (Auto) 2.8 (1.4-5.7) K/uL Lymph # (Auto) 2.6 H (0.6-2.4) K/uL [place] # (Auto) 0.4 (0.0-0.8) K/uL Eos # (Auto) 0.2 (0.0-0.7) K/uL Baso # (Auto) 0.1 (0.0-0.1) K/uL Nucleated RBC % 0.0 /100WBC Nucleated RBCs # 0 K/uL Sodium 141 (136-145) mmol/L Potassium 3.1 L (3.5-5.1) mmol/L Chloride 110 H (98-107) mmol/L Carbon Dioxide 20.8 L (21.0-32.0) mmol/L BUN 6 L (7.0-18.0) mg/dL Creatinine 0.9 (0.6-1.0) mg/dL Est Cr Clr Drug Dosing 93.69 mL/min Estimated GFR (MDRD) > 60.0 ml/min Glucose 81 (74-106) mg/dL Calcium 7.7 L (8.5-10.1) mg/dL Total Bilirubin 1.8 H (0.2-1.0) mg/dL AST 151 H (15-37) IU/L ALT 222 H (14-63) IU/L Alkaline Phosphatase 115 (46-116) U/L Total Protein 5.6 L (6.4-8.2) g/dL Albumin 2.7 L (3.4-5.0) g/dL Globulin 2.9 (2.6-4.0) g/dL Albumin/Globulin Ratio 0.9 (0.9-1.6) Triglycerides 66 (0-200) mg/dL Cholesterol 105 (50-200) mg/dL LDL Cholesterol, Calc 49 L (60-180) mg/dL VLDL Cholesterol 13 (5-55) mg/dL HDL Cholesterol 43 (40-60) mg/dL Cholesterol/HDL Ratio 2.4 L (3.3-6.0) Lipase 369 (73-393) U/L Urine Color YELLOW Urine Appearance HAZY Urine pH 5.0 (5.0-8.0) Ur Specific [place] 1.010 (1.001-1.035) Urine Protein NEGATIVE (NEGATIVE) mg/dL Urine Glucose (UA) NEGATIVE (NEGATIVE) mg/dL Urine Ketones NEGATIVE (NEGATIVE) mg/dL Urine Occult Blood NEGATIVE (NEGATIVE) Urine Nitrite NEGATIVE (NEGATIVE) Urine Bilirubin SMALL H (NEGATIVE) Urine Ictotest POSITIVE Urine Urobilinogen 0.2 (<2.0) EU/dL Ur Leukocyte Esterase TRACE H (NEGATIVE) Urine RBC 0-1 (0-2/HPF) Urine WBC 1-3 (0-5/HPF) Ur Epithelial Cells FEW (NONE-FEW) Urine Bacteria FEW (NEGATIVE) Urine Mucus LIGHT (NONE-MOD) Result Diagrams: 07/23/19 05:10 07/23/19 05:10 Consult PN Assessment/Plan Procedures: Procedures EMERGENCY DEPT VISIT (11/03/18) (1) Hyperbilirubinemia SNOMED Code(s): 88552263 Code(s): E80.6 - OTHER DISORDERS OF BILIRUBIN METABOLISM Priority: Low Current Visit: Yes (2) Cholecystitis SNOMED Code(s): 39420669 Code(s): K81.9 - CHOLECYSTITIS, UNSPECIFIED Priority: Medium Current Visit: Yes (3) Pancreatitis SNOMED Code(s): 97748388 Code(s): K85.90 - ACUTE PANCREATITIS WITHOUT NECROSIS OR INFECTION, UNSP Priority: High Current Visit: Yes Qualifiers: Chronicity: acute Pancreatitis type: biliary (4) Anxiety SNOMED Code(s): 39473323 Code(s): F41.9 - ANXIETY DISORDER, UNSPECIFIED Current Visit: No Problem List Initiated/Reviewed/Updated: Yes Plan: Marked improvement in lipase. Bilirubin has come down as well-only slightly elevated. Given the 3 day history, would prefer to let her cool down more and let her pancreatitis completely resolve. Would put her on a low fat diet. I would like to try and let this resolve over the next four weeks, then see her in the office and schedule her for a laparoscopic cholecystectomy. For the one month history of a breast mass would start with a mammogram and ultrasound as necessary. This can also be evaluated in the office in a month. Will recheck all her labs when she comes in for a preop visit.
[2019-07-23] MEDS: Ciprofloxacin in D5W 400 MG in Premix Bag 1 BAG IV SCH ×4 (10:00→20:40)
--- NOTE | 2019-07-23 10:55 | PCM.PN ---
- General Info Date of Service: 07/23/19 - Review of Systems Systems Review Comment:: abdominal pain is improving - Patient Data Vitals - Most Recent: Last Vital Signs Temp 36.9 C 07/23/19 07:47 Pulse 72 07/23/19 07:47 Resp 18 07/23/19 07:47 BP 113/69 07/23/19 07:47 Pulse Ox 98 07/23/19 07:47 Weight - Most Recent: 90.356 kg I&O - Last 24 Hours: Intake & Output 07/22/19 07/23/19 07/23/19 22:59 06:59 14:59 Intake Total 1335 1200 Output Total 400 Balance 935 1200 Lab Results Last 24 Hours: Laboratory Results - last 24 hr 07/22/19 07/22/19 07/22/19 Range/Units 17:13 17:13 17:13 WBC 8.41 (4.0-11.0) K/uL RBC 4.60 (4.30-5.90) M/uL Hgb 13.1 (12.0-16.0) g/dL Hct 40.3 (36.0-46.0) % MCV 87.6 (80.0-98.0) fL MCH 28.5 (27.0-32.0) pg MCHC 32.5 (31.0-37.0) g/dL RDW Std Deviation 44.2 (28.0-62.0) fl RDW Coeff of Julien 14 (11.0-15.0) % Plt Count 298 (150-400) K/uL MPV 11.30 (7.40-12.00) fL Neut % (Auto) 59.8 (48.0-80.0) % Lymph % (Auto) 29.6 (16.0-40.0) % [place] % (Auto) 7.1 (0.0-15.0) % Eos % (Auto) 2.9 (0.0-7.0) % Baso % (Auto) 0.6 (0.0-1.5) % Neut # (Auto) 5.0 (1.4-5.7) K/uL Lymph # (Auto) 2.5 H (0.6-2.4) K/uL [place] # (Auto) 0.6 (0.0-0.8) K/uL Eos # (Auto) 0.2 (0.0-0.7) K/uL Baso # (Auto) 0.1 (0.0-0.1) K/uL Nucleated RBC % 0.0 /100WBC Nucleated RBCs # 0 K/uL Sodium 137 (136-145) mmol/L Potassium 3.4 L (3.5-5.1) mmol/L Chloride 104 (98-107) mmol/L Carbon Dioxide 23.5 (21.0-32.0) mmol/L BUN 10 (7.0-18.0) mg/dL Creatinine 0.9 (0.6-1.0) mg/dL Est Cr Clr Drug Dosing 93.45 mL/min Estimated GFR (MDRD) > 60.0 ml/min Glucose 91 (74-106) mg/dL Calcium 8.6 (8.5-10.1) mg/dL Total Bilirubin 3.7 H (0.2-1.0) mg/dL AST 294 H (15-37) IU/L ALT 335 H (14-63) IU/L Alkaline Phosphatase 152 H (46-116) U/L Total Protein 7.2 (6.4-8.2) g/dL Albumin 3.5 (3.4-5.0) g/dL Globulin 3.7 (2.6-4.0) g/dL Albumin/Globulin Ratio 0.9 (0.9-1.6) Triglycerides (0-200) mg/dL Cholesterol (50-200) mg/dL LDL Cholesterol, Calc (60-180) mg/dL VLDL Cholesterol (5-55) mg/dL HDL Cholesterol (40-60) mg/dL Cholesterol/HDL Ratio (3.3-6.0) Lipase 7766 H (73-393) U/L Urine Color Urine Appearance Urine pH (5.0-8.0) Ur Specific Premier (1.001-1.035) Urine Protein (NEGATIVE) mg/dL Urine Glucose (UA) (NEGATIVE) mg/dL Urine Ketones (NEGATIVE) mg/dL Urine Occult Blood (NEGATIVE) Urine Nitrite (NEGATIVE) Urine Bilirubin (NEGATIVE) Urine Ictotest Urine Urobilinogen (<2.0) EU/dL Ur Leukocyte Esterase (NEGATIVE) Urine RBC (0-2/HPF) Urine WBC (0-5/HPF) Ur Epithelial Cells (NONE-FEW) Urine Bacteria (NEGATIVE) Urine Mucus (NONE-MOD) 07/22/19 07/23/19 07/23/19 Range/Units 19:10 05:10 05:10 WBC 6.10 (4.0-11.0) K/uL RBC 4.03 L (4.30-5.90) M/uL Hgb 11.5 L (12.0-16.0) g/dL Hct 35.3 L (36.0-46.0) % MCV 87.6 (80.0-98.0) fL MCH 28.5 (27.0-32.0) pg MCHC 32.6 (31.0-37.0) g/dL RDW Std Deviation 44.5 (28.0-62.0) fl RDW Coeff of Julien 14 (11.0-15.0) % Plt Count 233 (150-400) K/uL MPV 11.20 (7.40-12.00) fL Neut % (Auto) 46.0 L (48.0-80.0) % Lymph % (Auto) 42.1 H (16.0-40.0) % [place] % (Auto) 7.2 (0.0-15.0) % Eos % (Auto) 3.9 (0.0-7.0) % Baso % (Auto) 0.8 (0.0-1.5) % Neut # (Auto) 2.8 (1.4-5.7) K/uL Lymph # (Auto) 2.6 H (0.6-2.4) K/uL [place] # (Auto) 0.4 (0.0-0.8) K/uL Eos # (Auto) 0.2 (0.0-0.7) K/uL Baso # (Auto) 0.1 (0.0-0.1) K/uL Nucleated RBC % 0.0 /100WBC Nucleated RBCs # 0 K/uL Sodium 141 (136-145) mmol/L Potassium 3.1 L (3.5-5.1) mmol/L Chloride 110 H (98-107) mmol/L Carbon Dioxide 20.8 L (21.0-32.0) mmol/L BUN 6 L (7.0-18.0) mg/dL Creatinine 0.9 (0.6-1.0) mg/dL Est Cr Clr Drug Dosing 93.69 mL/min Estimated GFR (MDRD) > 60.0 ml/min Glucose 81 (74-106) mg/dL Calcium 7.7 L (8.5-10.1) mg/dL Total Bilirubin 1.8 H (0.2-1.0) mg/dL AST 151 H (15-37) IU/L ALT 222 H (14-63) IU/L Alkaline Phosphatase 115 (46-116) U/L Total Protein 5.6 L (6.4-8.2) g/dL Albumin 2.7 L (3.4-5.0) g/dL Globulin 2.9 (2.6-4.0) g/dL Albumin/Globulin Ratio 0.9 (0.9-1.6) Triglycerides 66 (0-200) mg/dL Cholesterol 105 (50-200) mg/dL LDL Cholesterol, Calc 49 L (60-180) mg/dL VLDL Cholesterol 13 (5-55) mg/dL HDL Cholesterol 43 (40-60) mg/dL Cholesterol/HDL Ratio 2.4 L (3.3-6.0) Lipase 369 (73-393) U/L Urine Color YELLOW Urine Appearance HAZY Urine pH 5.0 (5.0-8.0) Ur Specific Premier 1.010 (1.001-1.035) Urine Protein NEGATIVE (NEGATIVE) mg/dL Urine Glucose (UA) NEGATIVE (NEGATIVE) mg/dL Urine Ketones NEGATIVE (NEGATIVE) mg/dL Urine Occult Blood NEGATIVE (NEGATIVE) Urine Nitrite NEGATIVE (NEGATIVE) Urine Bilirubin SMALL H (NEGATIVE) Urine Ictotest POSITIVE Urine Urobilinogen 0.2 (<2.0) EU/dL Ur Leukocyte Esterase TRACE H (NEGATIVE) Urine RBC 0-1 (0-2/HPF) Urine WBC 1-3 (0-5/HPF) Ur Epithelial Cells FEW (NONE-FEW) Urine Bacteria FEW (NEGATIVE) Urine Mucus LIGHT (NONE-MOD) Med Orders - Current: Current Medications Ciprofloxacin/Dextrose 400 mg/ (Premix) 200 mls @ 200 mls/hr IV Q12H [facility] Last Admin: 07/23/19 10:00 Dose: 200 mls/hr Metronidazole 500 mg/ Premix 100 mls @ 100 mls/hr IV QID [facility] Last Admin: 07/23/19 05:33 Dose: 100 mls/hr Sodium Chloride (Normal Saline) 1,000 mls @ 200 mls/hr IV ASDIRECTED CINDY Last Admin: 07/23/19 06:39 Dose: 200 mls/hr Potassium Chloride/Sodium Chloride (Normal Saline With 40 Meq Kcl) 1,000 mls @ 200 mls/hr IV NOW STA Stop: 07/23/19 13:03 Last Admin: 07/23/19 10:00 Dose: 200 mls/hr Morphine Sulfate (Morphine) 2 mg IVPUSH Q2H PRN PRN Reason: Pain (severe 7-10) Stop: 07/23/19 20:36 Last Admin: 07/23/19 09:56 Dose: 2 mg Ondansetron HCl (Zofran) 4 mg IVPUSH Q4H PRN PRN Reason: Nausea Last Admin: 07/23/19 04:13 Dose: 4 mg Discontinued Medications Hydromorphone HCl (Dilaudid) 1 mg IVPUSH ONETIME ONE Stop: 07/22/19 20:09 Last Admin: 07/22/19 20:14 Dose: 1 mg Sodium Chloride (Normal Saline) 1,000 mls @ 999 mls/hr IV STAT ONE Stop: 07/22/19 19:19 Last Admin: 07/22/19 18:30 Dose: 999 mls/hr Sodium Chloride (Normal Saline) 1,000 mls @ 999 mls/hr IV .Bolus ONE Stop: 07/22/19 21:07 Last Admin: 07/22/19 20:14 Dose: 999 mls/hr Sodium Chloride (Normal Saline) 1,000 mls @ 999 mls/hr IV BOLUS CINDY Sodium Chloride (Normal Saline) 1,000 mls @ 999 mls/hr IV NOW ONE Stop: 07/23/19 09:30 Last Admin: 07/23/19 09:11 Dose: 999 mls/hr Iopamidol (Isovue Multipack-370 (76%)) 100 ml IVPUSH ONETIME STA Stop: 07/22/19 19:05 Last Admin: 07/22/19 19:05 Dose: 100 ml Ketorolac Tromethamine (Toradol) 30 mg IVPUSH ONETIME ONE Stop: 07/22/19 18:20 Last Admin: 07/22/19 18:30 Dose: 30 mg Ondansetron HCl (Zofran Odt) 4 mg PO ONETIME ONE Stop: 07/22/19 17:01 Last Admin: 07/22/19 17:41 Dose: 4 mg Ondansetron HCl (Zofran) 4 mg IVPUSH ONETIME ONE Stop: 07/22/19 20:09 Last Admin: 07/22/19 20:14 Dose: 4 mg - Exam General: Alert, Oriented Lungs: Clear to Auscultation, Normal Respiratory Effort Cardiovascular: Regular Rate, Regular Rhythm GI/Abdominal Exam: Normal Bowel Sounds, Soft, Tender (RUQ pain) Extremities: Non-Tender, No Pedal Edema Skin: Warm, Dry, Intact - Problem List Review Problem List Initiated/Reviewed/Updated: Yes - My Orders Last 24 Hours: My Active Orders 07/22/19 20:34 Oxygen Therapy [RC] PRN Up ad Meeta [RC] ASDIRECTED VTE/DVT Education [RC] PER UNIT ROUTINE Vital Signs [RC] Q4H Sequential Compression Device [OM.PC] Per Unit Routine Resuscitation Status Routine 07/22/19 20:35 Antiembolic Devices [RC] PER UNIT ROUTINE Morphine 2 mg IVPUSH Q2H PRN Ondansetron [Zofran] 4 mg IVPUSH Q4H PRN 07/22/19 20:45 Ciprofloxacin in D5W [Cipro in D5W 400 MG/200 ML] 400 mg Premix Bag 1 bag IV Q12H Sodium Chloride 0.9% [Normal Saline] 1,000 ml IV ASDIRECTED 07/23/19 00:00 metroNIDAZOLE/Normal Saline [Flagyl 500 MG in NS 100 ML] 500 mg Premix Bag 1 bag IV QID 07/23/19 05:11 Abdomen Comp [US] AM - Plan Plan:: 38 yo female admitted with acute cholecystitis and gallstone pancreatitis. Acute cholecystitis: Ciprofloxacin and flagyl, antiemetics and pain control as needed. Will consider starting clear liquid diet later today. abdominal ultrasound report pending. Dr. Zuniga consulted and plans on outpatient follow up in a month for cholecystectomy Pancreatitis: Lipase and bilirubin improving. We will continue IV fluid resuscitation. Breast mass: will need mammography/US as outpatient.
--- NOTE | 2019-07-23 13:08 | US ---
CT abdomen and pelvis Technique: Multiple axial sections were obtained from above the dome of the diaphragm inferiorly through the pubic symphysis. Intravenous contrast was utilized. No oral contrast has been given. Findings: Visualized lung bases show nothing acute. Liver contains no focal parenchymal abnormality. Spleen appears within normal limits. Adrenal glands show no nodule. Gallbladder contains a calcified gallstone measuring 6 mm. Kidneys show symmetric contrast enhancement with no hydronephrosis or mass. Pancreas is within normal limits. Aorta shows no aneurysm. No retroperitoneal adenopathy or mesenteric abnormalities are seen. Appendix is seen which is normal in size. No pelvic mass or adenopathy is seen. No free fluid or inflammatory change is seen. Bone window settings were reviewed which shows mild scoliosis within the spine. Nothing acute is appreciated within the osseous structures. Small umbilical fat-containing hernia is noted. Impression: 1. Small calcified gallstone. 2. Other findings which are believed to be incidental. Nothing acute is appreciated on CT study of the abdomen and pelvis. Diagnostic code #2 MTDD
[2019-07-23] MEDS ORDERED: NS + KCl 20mEq/L 1,000 ML IV SCH (13:30)
[2019-07-23] MEDS: Pantoprazole 40 MG in Sodium Chloride 0.9% 10 ML IV SCH (15:58)
[2019-07-24] MEDS: metroNIDAZOLE/Normal Saline 500 MG in Premix Bag 1 BAG IV SCH ×5 (00:14→23:36)
[2019-07-24] MEDS: Sodium Chloride 0.9% 1,000 ML IV SCH ×3 (00:14→22:47)
[2019-07-24] MEDS ORDERED: Morphine 2 MG/ML Syringe IVPUSH PRN (08:28)
--- NOTE | 2019-07-24 08:29 | PCM.PN ---
- General Info Date of Service: 07/24/19 Admission Dx/Problem (Free Text): Admission Diagnosis/Problem Admission Diagnosis/Problem Pancreatitis Subjective Update: Feeling ok this morning, abdominal pain continues but decline pain meds. Eager to try CL. No chest pain or SOB. Functional Status: Reports: Ambulating, Urinating. Denies: Pain Controlled - Review of Systems General: Reports: Malaise. Denies: Weakness, Fatigue HEENT: Reports: No Symptoms. Denies: Sore Throat, Visual Changes Pulmonary: Reports: No Symptoms. Denies: Shortness of Breath Cardiovascular: Reports: No Symptoms. Denies: Chest Pain Gastrointestinal: Reports: Abdominal Pain. Denies: Nausea, Vomiting Genitourinary: Reports: No Symptoms. Denies: Dysuria, Frequency, Burning Musculoskeletal: Reports: No Symptoms Skin: Reports: No Symptoms Neurological: Reports: No Symptoms Psychiatric: Reports: No Symptoms - Patient Data Vitals - Most Recent: Last Vital Signs Temp 98.2 F 07/24/19 08:00 Pulse 73 07/24/19 08:00 Resp 16 07/24/19 08:00 BP 97/65 07/24/19 08:00 Pulse Ox 100 07/24/19 08:00 Weight - Most Recent: 88.451 kg I&O - Last 24 Hours: Intake & Output 07/23/19 07/24/19 07/24/19 22:59 06:59 14:59 Intake Total 761 2340 Output Total 2300 2300 Balance -1539 40 Lab Results Last 24 Hours: Laboratory Results - last 24 hr 07/23/19 Range/Units 05:10 Magnesium 1.9 (1.8-2.4) mg/dL Denis Results Last 24 Hours: Microbiology 07/22/19 19:10 Urine Culture - Final Urine, Clean Catch MIXED PREM 10,000-100,000 CFU/ML Med Orders - Current: Current Medications Ciprofloxacin/Dextrose 400 mg/ (Premix) 200 mls @ 200 mls/hr IV Q12H COUNT INCLUDES THE [facility] Last Admin: 07/23/19 20:40 Dose: 200 mls/hr Metronidazole 500 mg/ Premix 100 mls @ 100 mls/hr IV QID COUNT INCLUDES THE [facility] Last Admin: 07/24/19 06:01 Dose: 100 mls/hr Sodium Chloride (Normal Saline) 1,000 mls @ 200 mls/hr IV ASDIRECTED COUNT INCLUDES THE [facility] Last Admin: 07/24/19 07:20 Dose: 200 mls/hr Pantoprazole Sodium 40 mg/ (Sodium Chloride) 10 mls @ 300 mls/hr IV Q24H CINDY Last Admin: 07/23/19 15:58 Dose: 300 mls/hr Morphine Sulfate (Morphine) 2 mg IVPUSH Q2H PRN PRN Reason: Pain Ondansetron HCl (Zofran) 4 mg IVPUSH Q4H PRN PRN Reason: Nausea Last Admin: 07/23/19 21:53 Dose: 4 mg Discontinued Medications Hydromorphone HCl (Dilaudid) 1 mg IVPUSH ONETIME ONE Stop: 07/22/19 20:09 Last Admin: 07/22/19 20:14 Dose: 1 mg Sodium Chloride (Normal Saline) 1,000 mls @ 999 mls/hr IV STAT ONE Stop: 07/22/19 19:19 Last Admin: 07/22/19 18:30 Dose: 999 mls/hr Sodium Chloride (Normal Saline) 1,000 mls @ 999 mls/hr IV .Bolus ONE Stop: 07/22/19 21:07 Last Admin: 07/22/19 20:14 Dose: 999 mls/hr Sodium Chloride (Normal Saline) 1,000 mls @ 999 mls/hr IV BOLUS CINDY Potassium Chloride/Sodium Chloride (Normal Saline With 40 Meq Kcl) 1,000 mls @ 200 mls/hr IV NOW STA Stop: 07/23/19 13:03 Last Admin: 07/23/19 10:00 Dose: 200 mls/hr Sodium Chloride (Normal Saline) 1,000 mls @ 999 mls/hr IV NOW ONE Stop: 07/23/19 09:30 Last Admin: 07/23/19 09:11 Dose: 999 mls/hr Potassium Chloride/Sodium Chloride (Normal Saline With 20 Meq Kcl) 1,000 mls @ 200 mls/hr IV ASDIRECTED CINDY Stop: 07/23/19 18:29 Last Admin: 07/23/19 17:16 Dose: 200 mls/hr Iopamidol (Isovue Multipack-370 (76%)) 100 ml IVPUSH ONETIME STA Stop: 07/22/19 19:05 Last Admin: 07/22/19 19:05 Dose: 100 ml Ketorolac Tromethamine (Toradol) 30 mg IVPUSH ONETIME ONE Stop: 07/22/19 18:20 Last Admin: 07/22/19 18:30 Dose: 30 mg Morphine Sulfate (Morphine) 2 mg IVPUSH Q2H PRN PRN Reason: Pain (severe 7-10) Stop: 07/23/19 20:36 Last Admin: 07/23/19 15:58 Dose: 2 mg Ondansetron HCl (Zofran Odt) 4 mg PO ONETIME ONE Stop: 07/22/19 17:01 Last Admin: 07/22/19 17:41 Dose: 4 mg Ondansetron HCl (Zofran) 4 mg IVPUSH ONETIME ONE Stop: 07/22/19 20:09 Last Admin: 07/22/19 20:14 Dose: 4 mg - Exam General: Alert, Oriented, Cooperative, No Acute Distress Neck: Supple Lungs: Clear to Auscultation, Normal Respiratory Effort Cardiovascular: Regular Rate, Regular Rhythm GI/Abdominal Exam: Normal Bowel Sounds, Soft, Tender (diffuse, but mainly to RUQ ) Extremities: Normal Inspection, Normal Range of Motion, Non-Tender, No Pedal Edema Neurological: No New Focal Deficit Psy/Mental Status: Alert, Normal Affect, Normal Mood - Problem List & Annotations (1) Cholecystitis SNOMED Code(s): 28336272 Code(s): K81.9 - CHOLECYSTITIS, UNSPECIFIED Status: Acute Priority: Medium Current Visit: Yes (2) Hyperbilirubinemia SNOMED Code(s): 97256400 Code(s): E80.6 - OTHER DISORDERS OF BILIRUBIN METABOLISM Status: Acute Priority: Low Current Visit: Yes (3) Pancreatitis SNOMED Code(s): 51630278 Code(s): K85.90 - ACUTE PANCREATITIS WITHOUT NECROSIS OR INFECTION, UNSP Status: Acute Priority: High Current Visit: Yes Qualifiers: Chronicity: acute Pancreatitis type: biliary - Problem List Review Problem List Initiated/Reviewed/Updated: Yes - My Orders Last 24 Hours: My Active Orders 07/23/19 15:45 Pantoprazole [ProTONIX IV] 40 mg Sodium Chloride 0.9% [Normal Saline] 10 ml IV Q24H 07/24/19 08:27 CBC WITH AUTO DIFF [HEME] Routine COMPREHENSIVE METABOLIC PN,CMP [CHEM] Routine MAGNESIUM [CHEM] Routine 07/24/19 08:28 Morphine 2 mg IVPUSH Q2H PRN - Plan Plan:: 38 yo female admitted with acute cholecystitis and gallstone pancreatitis. 1. Acute cholecystitis: Continue IV fluid resuscitation, Ciprofloxacin, and Flagyl. NPO with antiemetics and pain control as needed. Abdominal ultrasound revealed calcified gallstone. Dr. Zuniga has been consulted, with bump in bili today, recommended MRCP. Will order this to further evaluate. 2. Gallstone pancreatitis: Lipase normalized. Continue IVF and pain medications. Await MRCP. Will need cholecystectomy. 3. Breast Mass: Will follow up with Dr Zuniga with Mammo and US. VTE prophylaxis: SCDs and ambulation Dispo: 1-2 days pending improvement.
[2019-07-24] MEDS: Ciprofloxacin in D5W 400 MG in Premix Bag 1 BAG IV SCH ×4 (08:49→20:24)
[2019-07-24 09:29] LABS: BLOOD UREA NITROGEN,BUN 4 mg/dL (7.0-18.0); CARBON DIOXIDE,CO2 21.6 mmol/L (21.0-32.0); CHLORIDE,CL 109 mmol/L (98-107); GLUCOSE RANDOM 72 mg/dL (74-106); LIPASE 147 U/L (73-393); POTASSIUM,K 4.7 mmol/L (3.5-5.1); SODIUM,NA 140 mmol/L (136-145)
[2019-07-24] MEDS: Pantoprazole 40 MG in Sodium Chloride 0.9% 10 ML IV SCH (15:35)
--- NOTE | 2019-07-24 16:40 | MR ---
HISTORY: Gallstones. Abdominal pain. COMPARISON: CT of the abdomen and pelvis from 07/22/2019 TECHNIQUE: MR cholangiography is performed without contrast at 1.5 Susana using the body coil. Today`s study consists of axial and coronal T2, coronal T1, and oblique coronal thick slab heavily T2 weighted breath-hold images. FINDINGS: The extrahepatic biliary system shows no sign of dilatation with no sign of filling defect. The pancreatic duct is nondilated. There is no sign of intrahepatic biliary ductal dilatation. The appearance of the liver, spleen, pancreas, adrenals, and kidneys is normal on the images submitted. The tiny calculus seen in the dependent portion of the gallbladder on the recent CT is only minimally visible on today study. There is no change and mild thickening of the wall of the gallbladder, suggestive of acute cholecystitis. There is no sign of pericholecystic fluid to suggest abscess formation. There is no sign of dilatation of the abdominal aorta. The IVC is normal in appearance and there is no sign of retroperitoneal mass or adenopathy. During the interval, a tiny left pleural effusion has developed. The lung bases are otherwise clear. Aside from the left pleural effusion, there has been no other significant change compared to the recent CT of the abdomen. IMPRESSION: Normal MR appearance of the common bile duct with no sign of any filling defect or dilatation. No sign of intrahepatic biliary ductal dilatation. Minimal cholelithiasis again seen. Continued mild thickening of the wall of the gallbladder, suggesting acute cholecystitis. No sign of any pericholecystic fluid. New small left pleural effusion. Dictated by Kaleb Ibanez MD @ Jul 24 2019 4:30PM Signed by Dr. Kaleb Ibanez @ Jul 24 2019 4:38PM
[2019-07-25] MEDS: Sodium Chloride 0.9% 1,000 ML IV SCH (05:04)
[2019-07-25] MEDS: metroNIDAZOLE/Normal Saline 500 MG in Premix Bag 1 BAG IV SCH ×2 (05:04→11:22)
[2019-07-25 05:37] LABS: BLOOD UREA NITROGEN,BUN 2 mg/dL (7.0-18.0); CARBON DIOXIDE,CO2 18.4 mmol/L (21.0-32.0); CHLORIDE,CL 109 mmol/L (98-107); GLUCOSE RANDOM 83 mg/dL (74-106); POTASSIUM,K 3.4 mmol/L (3.5-5.1); SODIUM,NA 140 mmol/L (136-145)
[2019-07-25] MEDS: Ondansetron 4 MG/2 ML SDV IVPUSH PRN (07:43)
[2019-07-25] MEDS: Ciprofloxacin in D5W 400 MG in Premix Bag 1 BAG IV SCH ×2 (07:45)
[2019-07-25] MEDS ORDERED: Sodium Chloride 0.9% 1,000 ML IV SCH (08:04)
--- NOTE | 2019-07-25 08:32 | PCM.CONSN ---
- General Info Date of Service: 07/25/19 Admission Dx/Problem (Free Text): Cholelithiasis w/ acute cholecystitis. Pancreatitis. Subjective Update: Patient is feeling better this am. States mild right sided abdominal pain. Denies N/V. Not requiring po/IV analgesics. Functional Status: Reports: Pain Controlled, Tolerating Diet, Ambulating, Urinating. Denies: New Symptoms - Review of Systems General: Denies: Fever, Weakness, Fatigue, Malaise HEENT: Reports: No Symptoms Pulmonary: Denies: Shortness of Breath, Pleuritic Chest Pain, Cough Cardiovascular: Denies: Chest Pain, Dyspnea on Exertion Gastrointestinal: Reports: Abdominal Pain. Denies: Constipation, Decreased Appetite, Diarrhea, Hematochezia, Melena, Nausea, Vomiting Genitourinary: Denies: Dysuria, Frequency, Burning, Pain Musculoskeletal: Denies: Shoulder Pain, Back Pain Skin: Denies: Cyanosis, Jaundice, Mottled, Pallor, Diaphoresis Neurological: Reports: No Symptoms Psychiatric: Reports: No Symptoms - Patient Data Vitals - Most Recent: Last Vital Signs Temp 98.6 F 07/25/19 08:00 Pulse 67 07/25/19 08:00 Resp 14 07/25/19 08:00 BP 116/65 07/25/19 08:00 Pulse Ox 97 07/25/19 08:00 Weight - Most Recent: 195 lb I&O - Last 24 Hours: Intake & Output 07/24/19 07/25/19 07/25/19 19:59 03:59 11:59 Intake Total 9024 631 3443 Output Total 1999 2350 Balance -498 300 -51 Lab Results Last 24 Hours: Laboratory Results - last 24 hr 07/24/19 07/24/19 07/25/19 Range/Units 08:44 08:44 05:00 WBC 6.12 5.90 (4.0-11.0) K/uL RBC 4.28 L 4.06 L (4.30-5.90) M/uL Hgb 12.2 11.6 L (12.0-16.0) g/dL Hct 37.9 35.2 L (36.0-46.0) % MCV 88.6 86.7 (80.0-98.0) fL MCH 28.5 28.6 (27.0-32.0) pg MCHC 32.2 33.0 (31.0-37.0) g/dL RDW Std Deviation 44.9 43.0 (28.0-62.0) fl RDW Coeff of Julien 14 14 (11.0-15.0) % Plt Count 239 241 (150-400) K/uL MPV 11.70 11.30 (7.40-12.00) fL Neut % (Auto) 59.2 58.3 (48.0-80.0) % Lymph % (Auto) 29.2 31.7 (16.0-40.0) % Charlotte % (Auto) 6.7 5.6 (0.0-15.0) % Eos % (Auto) 4.1 3.6 (0.0-7.0) % Baso % (Auto) 0.8 0.8 (0.0-1.5) % Neut # (Auto) 3.6 3.4 (1.4-5.7) K/uL Lymph # (Auto) 1.8 1.9 (0.6-2.4) K/uL Charlotte # (Auto) 0.4 0.3 (0.0-0.8) K/uL Eos # (Auto) 0.3 0.2 (0.0-0.7) K/uL Baso # (Auto) 0.1 0.1 (0.0-0.1) K/uL Nucleated RBC % 0.0 0.0 /100WBC Nucleated RBCs # 0 0 K/uL Sodium 140 (136-145) mmol/L Potassium 4.7 (3.5-5.1) mmol/L Chloride 109 H (98-107) mmol/L Carbon Dioxide 21.6 (21.0-32.0) mmol/L BUN 4 L (7.0-18.0) mg/dL Creatinine 0.9 (0.6-1.0) mg/dL Est Cr Clr Drug Dosing 93.69 mL/min Estimated GFR (MDRD) > 60.0 ml/min Glucose 72 L (74-106) mg/dL Calcium 8.7 (8.5-10.1) mg/dL Magnesium 1.8 (1.8-2.4) mg/dL Total Bilirubin 2.3 H (0.2-1.0) mg/dL AST 76 H (15-37) IU/L ALT 165 H (14-63) IU/L Alkaline Phosphatase 123 H (46-116) U/L Total Protein 6.1 L (6.4-8.2) g/dL Albumin 2.9 L (3.4-5.0) g/dL Globulin 3.2 (2.6-4.0) g/dL Albumin/Globulin Ratio 0.9 (0.9-1.6) Lipase 147 (73-393) U/L 07/25/19 Range/Units 05:00 WBC (4.0-11.0) K/uL RBC (4.30-5.90) M/uL Hgb (12.0-16.0) g/dL Hct (36.0-46.0) % MCV (80.0-98.0) fL MCH (27.0-32.0) pg MCHC (31.0-37.0) g/dL RDW Std Deviation (28.0-62.0) fl RDW Coeff of Julien (11.0-15.0) % Plt Count (150-400) K/uL MPV (7.40-12.00) fL Neut % (Auto) (48.0-80.0) % Lymph % (Auto) (16.0-40.0) % Charlotte % (Auto) (0.0-15.0) % Eos % (Auto) (0.0-7.0) % Baso % (Auto) (0.0-1.5) % Neut # (Auto) (1.4-5.7) K/uL Lymph # (Auto) (0.6-2.4) K/uL Charlotte # (Auto) (0.0-0.8) K/uL Eos # (Auto) (0.0-0.7) K/uL Baso # (Auto) (0.0-0.1) K/uL Nucleated RBC % /100WBC Nucleated RBCs # K/uL Sodium 140 (136-145) mmol/L Potassium 3.4 L (3.5-5.1) mmol/L Chloride 109 H (98-107) mmol/L Carbon Dioxide 18.4 L (21.0-32.0) mmol/L BUN 2 L (7.0-18.0) mg/dL Creatinine 0.9 (0.6-1.0) mg/dL Est Cr Clr Drug Dosing 93.69 mL/min Estimated GFR (MDRD) > 60.0 ml/min Glucose 83 (74-106) mg/dL Calcium 7.9 L (8.5-10.1) mg/dL Magnesium 1.6 L (1.8-2.4) mg/dL Total Bilirubin 1.9 H (0.2-1.0) mg/dL AST 47 H (15-37) IU/L ALT 117 H (14-63) IU/L Alkaline Phosphatase 105 (46-116) U/L Total Protein 5.4 L (6.4-8.2) g/dL Albumin 2.5 L (3.4-5.0) g/dL Globulin 2.9 (2.6-4.0) g/dL Albumin/Globulin Ratio 0.9 (0.9-1.6) Lipase (73-393) U/L Denis Results Last 24 Hours: Microbiology 07/22/19 19:10 Urine Culture - Final Urine, Clean Catch MIXED PREM 10,000-100,000 CFU/ML Med Orders - Current: Current Medications Ciprofloxacin/Dextrose 400 mg/ (Premix) 200 mls @ 200 mls/hr IV Q12H [facility] Last Admin: 07/25/19 07:45 Dose: 200 mls/hr Metronidazole 500 mg/ Premix 100 mls @ 100 mls/hr IV QID [facility] Last Admin: 07/25/19 05:04 Dose: 100 mls/hr Pantoprazole Sodium 40 mg/ (Sodium Chloride) 10 mls @ 300 mls/hr IV Q24H [facility] Last Admin: 07/24/19 15:35 Dose: 300 mls/hr Sodium Chloride (Normal Saline) 1,000 mls @ 125 mls/hr IV ASDIRECTED [facility] Morphine Sulfate (Morphine) 2 mg IVPUSH Q2H PRN PRN Reason: Pain Ondansetron HCl (Zofran) 4 mg IVPUSH Q4H PRN PRN Reason: Nausea Last Admin: 07/25/19 07:43 Dose: 4 mg Discontinued Medications Hydromorphone HCl (Dilaudid) 1 mg IVPUSH ONETIME ONE Stop: 07/22/19 20:09 Last Admin: 07/22/19 20:14 Dose: 1 mg Sodium Chloride (Normal Saline) 1,000 mls @ 999 mls/hr IV STAT ONE Stop: 07/22/19 19:19 Last Admin: 07/22/19 18:30 Dose: 999 mls/hr Sodium Chloride (Normal Saline) 1,000 mls @ 999 mls/hr IV .Bolus ONE Stop: 07/22/19 21:07 Last Admin: 07/22/19 20:14 Dose: 999 mls/hr Sodium Chloride (Normal Saline) 1,000 mls @ 999 mls/hr IV BOLUS CINDY Sodium Chloride (Normal Saline) 1,000 mls @ 200 mls/hr IV ASDIRECTED [facility] Last Admin: 07/25/19 05:04 Dose: 200 mls/hr Potassium Chloride/Sodium Chloride (Normal Saline With 40 Meq Kcl) 1,000 mls @ 200 mls/hr IV NOW STA Stop: 07/23/19 13:03 Last Admin: 07/23/19 10:00 Dose: 200 mls/hr Sodium Chloride (Normal Saline) 1,000 mls @ 999 mls/hr IV NOW ONE Stop: 07/23/19 09:30 Last Admin: 07/23/19 09:11 Dose: 999 mls/hr Potassium Chloride/Sodium Chloride (Normal Saline With 20 Meq Kcl) 1,000 mls @ 200 mls/hr IV ASDIRECTED CINDY Stop: 07/23/19 18:29 Last Admin: 07/23/19 17:16 Dose: 200 mls/hr Iopamidol (Isovue Multipack-370 (76%)) 100 ml IVPUSH ONETIME STA Stop: 07/22/19 19:05 Last Admin: 07/22/19 19:05 Dose: 100 ml Ketorolac Tromethamine (Toradol) 30 mg IVPUSH ONETIME ONE Stop: 07/22/19 18:20 Last Admin: 07/22/19 18:30 Dose: 30 mg Morphine Sulfate (Morphine) 2 mg IVPUSH Q2H PRN PRN Reason: Pain (severe 7-10) Stop: 07/23/19 20:36 Last Admin: 07/23/19 15:58 Dose: 2 mg Ondansetron HCl (Zofran Odt) 4 mg PO ONETIME ONE Stop: 07/22/19 17:01 Last Admin: 07/22/19 17:41 Dose: 4 mg Ondansetron HCl (Zofran) 4 mg IVPUSH ONETIME ONE Stop: 07/22/19 20:09 Last Admin: 07/22/19 20:14 Dose: 4 mg - Exam General: Alert, Oriented, Cooperative, No Acute Distress HEENT: Pupils Equal, Pupils Reactive, EOMI. No: Scleral Icterus Neck: Supple Lungs: Clear to Auscultation, Normal Respiratory Effort Cardiovascular: Regular Rate, Regular Rhythm, No Murmurs. No: Tachycardia GI/Abdominal Exam: Normal Bowel Sounds, Soft, Non-Tender, No Mass. No: Guarding , Rigid, Rebound (Female) Exam: Deferred Back Exam: Normal Inspection Extremities: Normal Inspection, Normal Range of Motion Skin: Warm, Dry, Intact Neurological: No New Focal Deficit Psy/Mental Status: Alert, Normal Affect, Normal Mood Consult PN Assessment/Plan Procedures: Procedures EMERGENCY DEPT VISIT (11/03/18) (1) Hyperbilirubinemia SNOMED Code(s): 09170849 Code(s): E80.6 - OTHER DISORDERS OF BILIRUBIN METABOLISM Priority: Low Current Visit: Yes (2) Cholecystitis SNOMED Code(s): 40738228 Code(s): K81.9 - CHOLECYSTITIS, UNSPECIFIED Priority: Medium Current Visit: Yes (3) Pancreatitis SNOMED Code(s): 17384459 Code(s): K85.90 - ACUTE PANCREATITIS WITHOUT NECROSIS OR INFECTION, UNSP Priority: High Current Visit: Yes Qualifiers: Chronicity: acute Pancreatitis type: biliary (4) Anxiety SNOMED Code(s): 03154833 Code(s): F41.9 - ANXIETY DISORDER, UNSPECIFIED Current Visit: No Problem List Initiated/Reviewed/Updated: Yes Plan: MRI has been personally reviewed along with the report. LFT's continue to improve. Bilirubin again trending down. Minimall tender on right side of abdomen. Calzada's sign is negative. Minimal inflammatory change noted on MRI with a single, small gallstone and no ductal dilatation. Recommend: 1) Low fat diet 2) Discharge per hospitalist team 3) See me 3-4 weeks to have interval cholecystectomy arranged.
--- NOTE | 2019-07-25 10:36 | PCM.DCSUM1 ---
Discharge Summary - Hospital Course Brief History: 38 yo female who presents to the ED with complaint of nausea and vomiting for past two day. She also reports RUQ pain for the past year. The pain occurs everyday after eating. She also reports diarrhea most days for the past year. She had attributed some of her symptoms to grieving from her husbands this year. She denies any fevers. Diagnosis: Stroke: No - Discharge Data Discharge Date: 07/25/19 Discharge Disposition: Home, Self-Care 01 Condition: Good - Referral to Home Health Primary Care Physician: PCP Unknown - Discharge Diagnosis/Problem(s) (1) Cholecystitis SNOMED Code(s): 43859306 ICD Code: K81.9 - CHOLECYSTITIS, UNSPECIFIED Status: Acute Priority: Medium Current Visit: Yes (2) Hyperbilirubinemia SNOMED Code(s): 91826689 ICD Code: E80.6 - OTHER DISORDERS OF BILIRUBIN METABOLISM Status: Acute Priority: Low Current Visit: Yes (3) Pancreatitis SNOMED Code(s): 33903810 ICD Code: K85.90 - ACUTE PANCREATITIS WITHOUT NECROSIS OR INFECTION, UNSP Status: Acute Priority: High Current Visit: Yes Qualifiers: Chronicity: acute Pancreatitis type: biliary - Patient Summary/Data Consults: Consultations 07/22/19 20:12 Consult to Physician [CONS] Stat - Patient Instructions Diet: Clear Liquid Diet (slowly advance to Full liquid and then to low fat regular diet) Activity: As Tolerated, No Strenuous Activities Driving: Do Not Drive (today) Showering/Bathing: May Shower Notify Provider of: Fever, Increased Pain, Swelling and Redness, Drainage, Nausea and/or Vomiting - Discharge Plan *PRESCRIPTION DRUG MONITORING PROGRAM REVIEWED*: Not Applicable *COPY OF PRESCRIPTION DRUG MONITORING REPORT IN PATIENT BRAYAN: Not Applicable Prescriptions/Med Rec: Ciprofloxacin [Ciprofloxacin HCl] 500 mg PO BID #14 tab metroNIDAZOLE [Flagyl] 500 mg PO Q8H #21 tab Ondansetron [Zofran ODT] 4 mg PO Q6H PRN #30 tab.dis PRN Reason: Nausea Home Medications: Home Meds Ciprofloxacin [Ciprofloxacin HCl] 500 mg PO BID #14 tab 07/25/19 [Rx] Ondansetron [Zofran ODT] 4 mg PO Q6H PRN #30 tab.dis 07/25/19 [Rx] metroNIDAZOLE [Flagyl] 500 mg PO Q8H #21 tab 07/25/19 [Rx] Oxygen Therapy Mode: Room Air Patient Handouts: Ondansetron tablets, Acute Pancreatitis, [id number], Ciprofloxacin tablets, Metronidazole tablets or capsules Referrals: Rafael Zuniga MD [Physician] - 08/14/19 9:00 am (4 weeks) Patti Doe DO [Resident] - 08/07/19 9:30 am - Discharge Summary/Plan Comment DC Time >30 min.: No Discharge Summary/Plan Comment: Admitting Diagnoses: Cholecystitis Gallstone pancreatitis Hypokalemia Discharge Diagnoses: Cholecystitis Gallstone pancreatitis Marina was admitted due to RUQ pain and found to have acute cholecystitis and gallstone pancreatitis. She was treated with IVFs along with Ciprofloxacin and Flagyl. cheryle Zuniga, general surgery consulted. She was noted to have elevated lipase on admission, the next day returned to normal. Labwork improved but on day 3 of admission she was noted to have elevation in bili slightly. Dr Zuniga recommended MRCP. This revealed acute cholecystitis, with one solitary gallstone in dependent gallbladder. She is feeling improved today, intermittent pain, but has not need pain medication. She is tolerating CL diet. She is eager to go home. She will follow up with Dr Zuniga regarding cholecystectomy in coming weeks. She also was noted to have L breast mass, which he will arrange mammogram and US as well. She will be sent home with Cipro and Flagyl for total of 10 days, in addition to some Zofran. She is to return to the ED or clinic if concerns should arise. She was educated on low fat diet, but slowly advancing from CL to FL and then soft low fat. She verbalized understanding. - Patient Data Vitals - Most Recent: Last Vital Signs Temp 98.6 F 07/25/19 08:00 Pulse 67 07/25/19 08:00 Resp 14 07/25/19 08:00 BP 116/65 07/25/19 08:00 Pulse Ox 97 07/25/19 08:00 Weight - Most Recent: 88.451 kg I&O - Last 24 hours: Intake & Output 07/24/19 07/25/19 07/25/19 22:59 06:59 14:59 Intake Total 1602 2399 Output Total 1999 2350 Balance -398 49 Lab Results - Last 24 hrs: Laboratory Results - last 24 hr 07/25/19 07/25/19 Range/Units 05:00 05:00 WBC 5.90 (4.0-11.0) K/uL RBC 4.06 L (4.30-5.90) M/uL Hgb 11.6 L (12.0-16.0) g/dL Hct 35.2 L (36.0-46.0) % MCV 86.7 (80.0-98.0) fL MCH 28.6 (27.0-32.0) pg MCHC 33.0 (31.0-37.0) g/dL RDW Std Deviation 43.0 (28.0-62.0) fl RDW Coeff of Julien 14 (11.0-15.0) % Plt Count 241 (150-400) K/uL MPV 11.30 (7.40-12.00) fL Neut % (Auto) 58.3 (48.0-80.0) % Lymph % (Auto) 31.7 (16.0-40.0) % Darke % (Auto) 5.6 (0.0-15.0) % Eos % (Auto) 3.6 (0.0-7.0) % Baso % (Auto) 0.8 (0.0-1.5) % Neut # (Auto) 3.4 (1.4-5.7) K/uL Lymph # (Auto) 1.9 (0.6-2.4) K/uL Darke # (Auto) 0.3 (0.0-0.8) K/uL Eos # (Auto) 0.2 (0.0-0.7) K/uL Baso # (Auto) 0.1 (0.0-0.1) K/uL Nucleated RBC % 0.0 /100WBC Nucleated RBCs # 0 K/uL Sodium 140 (136-145) mmol/L Potassium 3.4 L (3.5-5.1) mmol/L Chloride 109 H (98-107) mmol/L Carbon Dioxide 18.4 L (21.0-32.0) mmol/L BUN 2 L (7.0-18.0) mg/dL Creatinine 0.9 (0.6-1.0) mg/dL Est Cr Clr Drug Dosing 93.69 mL/min Estimated GFR (MDRD) > 60.0 ml/min Glucose 83 (74-106) mg/dL Calcium 7.9 L (8.5-10.1) mg/dL Magnesium 1.6 L (1.8-2.4) mg/dL Total Bilirubin 1.9 H (0.2-1.0) mg/dL AST 47 H (15-37) IU/L ALT 117 H (14-63) IU/L Alkaline Phosphatase 105 (46-116) U/L Total Protein 5.4 L (6.4-8.2) g/dL Albumin 2.5 L (3.4-5.0) g/dL Globulin 2.9 (2.6-4.0) g/dL Albumin/Globulin Ratio 0.9 (0.9-1.6) KITTY Results - Last 24 hrs: Microbiology 07/22/19 19:10 Urine Culture - Final Urine, Clean Catch MIXED PREM 10,000-100,000 CFU/ML Med Orders - Current: Current Medications Ciprofloxacin/Dextrose 400 mg/ (Premix) 200 mls @ 200 mls/hr IV Q12H [facility] Last Admin: 07/25/19 07:45 Dose: 200 mls/hr Metronidazole 500 mg/ Premix 100 mls @ 100 mls/hr IV QID [facility] Last Admin: 07/25/19 05:04 Dose: 100 mls/hr Pantoprazole Sodium 40 mg/ (Sodium Chloride) 10 mls @ 300 mls/hr IV Q24H [facility] Last Admin: 07/24/19 15:35 Dose: 300 mls/hr Sodium Chloride (Normal Saline) 1,000 mls @ 125 mls/hr IV ASDIRECTED [facility] Last Admin: 07/25/19 09:28 Dose: 125 mls/hr Morphine Sulfate (Morphine) 2 mg IVPUSH Q2H PRN PRN Reason: Pain Ondansetron HCl (Zofran) 4 mg IVPUSH Q4H PRN PRN Reason: Nausea Last Admin: 07/25/19 07:43 Dose: 4 mg Discontinued Medications Hydromorphone HCl (Dilaudid) 1 mg IVPUSH ONETIME ONE Stop: 07/22/19 20:09 Last Admin: 07/22/19 20:14 Dose: 1 mg Sodium Chloride (Normal Saline) 1,000 mls @ 999 mls/hr IV STAT ONE Stop: 07/22/19 19:19 Last Admin: 07/22/19 18:30 Dose: 999 mls/hr Sodium Chloride (Normal Saline) 1,000 mls @ 999 mls/hr IV .Bolus ONE Stop: 07/22/19 21:07 Last Admin: 07/22/19 20:14 Dose: 999 mls/hr Sodium Chloride (Normal Saline) 1,000 mls @ 999 mls/hr IV BOLUS CINDY Sodium Chloride (Normal Saline) 1,000 mls @ 200 mls/hr IV ASDIRECTED [facility] Last Admin: 07/25/19 05:04 Dose: 200 mls/hr Potassium Chloride/Sodium Chloride (Normal Saline With 40 Meq Kcl) 1,000 mls @ 200 mls/hr IV NOW STA Stop: 07/23/19 13:03 Last Admin: 07/23/19 10:00 Dose: 200 mls/hr Sodium Chloride (Normal Saline) 1,000 mls @ 999 mls/hr IV NOW ONE Stop: 07/23/19 09:30 Last Admin: 07/23/19 09:11 Dose: 999 mls/hr Potassium Chloride/Sodium Chloride (Normal Saline With 20 Meq Kcl) 1,000 mls @ 200 mls/hr IV ASDIRECTED [facility] Stop: 07/23/19 18:29 Last Admin: 07/23/19 17:16 Dose: 200 mls/hr Iopamidol (Isovue Multipack-370 (76%)) 100 ml IVPUSH ONETIME STA Stop: 07/22/19 19:05 Last Admin: 07/22/19 19:05 Dose: 100 ml Ketorolac Tromethamine (Toradol) 30 mg IVPUSH ONETIME ONE Stop: 07/22/19 18:20 Last Admin: 07/22/19 18:30 Dose: 30 mg Morphine Sulfate (Morphine) 2 mg IVPUSH Q2H PRN PRN Reason: Pain (severe 7-10) Stop: 07/23/19 20:36 Last Admin: 07/23/19 15:58 Dose: 2 mg Ondansetron HCl (Zofran Odt) 4 mg PO ONETIME ONE Stop: 07/22/19 17:01 Last Admin: 07/22/19 17:41 Dose: 4 mg Ondansetron HCl (Zofran) 4 mg IVPUSH ONETIME ONE Stop: 07/22/19 20:09 Last Admin: 07/22/19 20:14 Dose: 4 mg
[2019-07-25] MEDS: Pantoprazole 40 MG in Sodium Chloride 0.9% 10 ML IV SCH (15:18)
== END 2019-07-25 15:30 | disposition home or self-care (01) | DRG 444 ==
LOC: MW.ED 16:39 → MW.MS 20:11
PROVIDERS: ADMIT Internal Medicine; ATTEND Internal Medicine
DX: K81.9 Cholecystitis, unspecified (principal); K85.10 Biliary acute pancreatitis without necrosis or infection; E80.6 Other disorders of bilirubin metabolism; F41.9 Anxiety disorder, unspecified; F17.210 Nicotine dependence, cigarettes, uncomplicated; N63.0 Unspecified lump in unspecified breast; Z79.899 Other long term (current) drug therapy; Z88.8 Allergy status to other drugs, medicaments and biological substances; Z98.51 Tubal ligation status
CPT/HCPCS: 36415; 74177; 74177-26; 74181; 74181-26; 76700; 76700-26; 80053; 80061; 81001; 83690; 83735; 85025; 87086; 96361; 96365; 96375; 99284; 99284-25; A9270-GY; C9113; J0744; J1170; J1885; J2270; J2405; J3480; J3490; J7040; J7050; Q9967

== ENCOUNTER 2019-08-09 08:47 | Emergency (ER) | payer OTHER ==
[2019-08-09] MEDS ORDERED: Sodium Chloride 0.9% 10 ML Syringe FLUSH PRN (08:53)
[2019-08-09] MEDS ORDERED: Sodium Chloride 0.9% 2.5 ML Syringe FLUSH PRN (08:53)
--- NOTE | 2019-08-09 09:02 | EDM.PDOC ---
ED HPI GENERAL MEDICAL PROBLEM - General Chief Complaint: Abdominal Pain Stated Complaint: ABDOMINAL PAIN Time Seen by Provider: 08/09/19 08:49 Source of Information: Reports: Patient History Limitations: Reports: No Limitations - History of Present Illness INITIAL COMMENTS - FREE TEXT/NARRATIVE: History of present illness: []Patient was admitted on 07/22 to this hospital with cholecystitis and pancreatitis and is scheduled to follow-up with Dr. Zuniga for an elective cholecystectomy next week. Patient has had worsening pain for the last 2 days she stopped eating and is only drinking water she is unable to tolerate her pain and is having chills. Review of systems: As per history of present illness and below otherwise all systems reviewed and negative. Past medical history: As per history of present illness and as reviewed below otherwise noncontributory. Surgical history: As per history of present illness and as reviewed below otherwise noncontributory. Social history: No reported history of drug or alcohol abuse. Family history: As per history of present illness and as reviewed below otherwise noncontributory. Physical exam: General: Well developed, well nourished in NAD HEENT: Atraumatic, normocephalic, pupils reactive, negative for conjunctival pallor or scleral icterus, mucous membranes moist, throat clear, neck supple, nontender, trachea midline. Lungs: Clear to auscultation, breath sounds equal bilaterally, chest nontender. Heart: S1S2, regular, negative for clicks, rubs, or JVD. Abdomen: NABS, Soft, nondistended, mild tenderness right upper quadrant no rebound or guarding. Negative for masses or hepatosplenomegaly. Negative for costovertebral tenderness. Pelvis: Stable nontender. Genitourinary: Deferred. Rectal: Deferred. Extremities: Atraumatic, negative for cords or calf pain. Neurovascular unremarkable. Neuro: Awake, alert, oriented. Cranial nerves II through XII unremarkable. Cerebellum unremarkable. Motor and sensory unremarkable throughout. Exam nonfocal. Skin:warm and dry Diagnostics: CBC, chemistry, lipase, UA, hCG, abd ultrasound Therapeutics: IV hydration, morphine, Zofran ED Course: Stable, consulted general surgery Dr. Crawford states patient needs to go to [facility] for ERCP, 10:51-consulted [facility] Dr. Abbasi, hospitalist on-call, accepts patient for transfer Impression: Elevated bilirubin Prescriptions: None Plan: Transfer to [facility] for MRCP Definitive disposition and diagnosis as appropriate pending reevaluation and review of above. abdomen Pain Score (Numeric/FACES): 4 - Related Data Allergies Allergy/AdvReac Type Severity Reaction Status Date / Time alprazolam [From Xanax] Allergy Swelling Verified 08/09/19 08:53 aripiprazole [From Abilify] Allergy Irritabilit Verified 08/09/19 08:53 y quetiapine [From Seroquel] Allergy Other Verified 08/09/19 08:53 Home Meds: Home Meds . [No Known Home Meds] 08/09/19 [History] Past Medical History Gastrointestinal History: Reports: Cholelithiasis, Pancreatitis [employer] History: Reports: , Spontaneous Psychiatric History: Reports: Anxiety Other Psychiatric History: Dissociative Disorder - Infectious Disease History Infectious Disease History: Reports: Chicken Pox, MRSA - Past Surgical History Female Surgical History: Reports: Tubal Ligation Social & Family History - Family History Family Medical History: Noncontributory - Tobacco Use Smoking Status *Q: Former Smoker Used Tobacco, but Quit: Yes Month/Year Tobacco Last Used: 2019 - Caffeine Use Caffeine Use: Reports: Coffee - Recreational Drug Use Recreational Drug Use: No ED ROS GENERAL - Review of Systems Review Of Systems: See Below ED EXAM, GI/ABD - Physical Exam Exam: See Below Course - Vital Signs Last Recorded V/S: Last Vital Signs Temp 96.7 F 08/09/19 08:54 Pulse 98 08/09/19 08:54 Resp 18 08/09/19 08:54 BP 117/87 08/09/19 08:54 Pulse Ox 98 08/09/19 08:54 - Orders/Labs/Meds Orders: Active Orders 24 hr Category Date Time Status UA W/MICROSCOPIC [URIN] Stat Lab 08/09/19 08:54 Ordered Sodium Chloride 0.9% [Normal Saline] 1,000 ml Med 08/09/19 09:05 Active IV ASDIRECTED Sodium Chloride 0.9% [Saline Flush] Med 08/09/19 08:53 Active 10 ml FLUSH ASDIRECTED PRN Sodium Chloride 0.9% [Saline Flush] Med 08/09/19 08:53 Active 2.5 ml FLUSH ASDIRECTED PRN Saline Lock Insert [OM.PC] Stat Oth 08/09/19 08:53 Ordered Medication Orders Sodium Chloride (Normal Saline) 1,000 mls @ 999 mls/hr IV ASDIRECTED CINDY Last Admin: 08/09/19 09:06 Dose: 999 mls/hr Sodium Chloride (Saline Flush) 10 ml FLUSH ASDIRECTED PRN PRN Reason: Keep Vein Open Sodium Chloride (Saline Flush) 2.5 ml FLUSH ASDIRECTED PRN PRN Reason: Keep Vein Open Labs: Laboratory Tests 08/09/19 08/09/19 08/09/19 Range/Units 09:00 09:00 09:00 WBC 7.45 (4.0-11.0) K/uL RBC 5.00 (4.30-5.90) M/uL Hgb 14.4 (12.0-16.0) g/dL Hct 43.0 (36.0-46.0) % MCV 86.0 (80.0-98.0) fL MCH 28.8 (27.0-32.0) pg MCHC 33.5 (31.0-37.0) g/dL RDW Std Deviation 44.0 (28.0-62.0) fl RDW Coeff of Julien 14 (11.0-15.0) % Plt Count 396 (150-400) K/uL MPV 11.50 (7.40-12.00) fL Neut % (Auto) 60.3 (48.0-80.0) % Lymph % (Auto) 28.2 (16.0-40.0) % [place] % (Auto) 5.9 (0.0-15.0) % Eos % (Auto) 4.4 (0.0-7.0) % Baso % (Auto) 1.2 (0.0-1.5) % Neut # (Auto) 4.5 (1.4-5.7) K/uL Lymph # (Auto) 2.1 (0.6-2.4) K/uL [place] # (Auto) 0.4 (0.0-0.8) K/uL Eos # (Auto) 0.3 (0.0-0.7) K/uL Baso # (Auto) 0.1 (0.0-0.1) K/uL Nucleated RBC % 0.0 /100WBC Nucleated RBCs # 0 K/uL Sodium 139 (136-145) mmol/L Potassium 3.9 (3.5-5.1) mmol/L Chloride 103 (98-107) mmol/L Carbon Dioxide 25.2 (21.0-32.0) mmol/L BUN 9 (7.0-18.0) mg/dL Creatinine 1.0 (0.6-1.0) mg/dL Est Cr Clr Drug Dosing 84.10 mL/min Estimated GFR (MDRD) > 60.0 ml/min Glucose 91 (74-106) mg/dL Calcium 9.5 (8.5-10.1) mg/dL Total Bilirubin 5.1 H (0.2-1.0) mg/dL AST 227 H (15-37) IU/L ALT 159 H (14-63) IU/L Alkaline Phosphatase 166 H (46-116) U/L Total Protein 8.0 (6.4-8.2) g/dL Albumin 3.9 (3.4-5.0) g/dL Globulin 4.1 H (2.6-4.0) g/dL Albumin/Globulin Ratio 1.0 (0.9-1.6) Lipase 179 (73-393) U/L HCG, Qual NEGATIVE (NEG) Meds: Medications Generic Name Dose Route Start Last Admin Trade Name Freq PRN Reason Stop Dose Admin Sodium Chloride 1,000 mls @ 999 mls/hr 08/09/19 09:05 08/09/19 09:06 Normal Saline IV 999 mls/hr ASDIRECTED CINDY Administration Sodium Chloride 10 ml 08/09/19 08:53 Saline Flush FLUSH ASDIRECTED PRN Keep Vein Open Sodium Chloride 2.5 ml 08/09/19 08:53 Saline Flush FLUSH ASDIRECTED PRN Keep Vein Open Discontinued Medications Generic Name Dose Route Start Last Admin Trade Name Freq PRN Reason Stop Dose Admin Morphine Sulfate 4 mg 08/09/19 09:22 08/09/19 09:28 Morphine IVPUSH 08/09/19 09:23 4 mg ONETIME ONE Administration Ondansetron HCl 4 mg 08/09/19 09:22 08/09/19 09:28 Zofran IVPUSH 08/09/19 09:23 4 mg ONETIME ONE Administration Departure - Departure Time of Disposition: 10:57 Disposition: DC/Tfer to Acute Hospital 02 Condition: Good Clinical Impression: Elevated bilirubin - Discharge Information *PRESCRIPTION DRUG MONITORING PROGRAM REVIEWED*: Not Applicable *COPY OF PRESCRIPTION DRUG MONITORING REPORT IN PATIENT BRAYAN: Not Applicable Referrals: Patti Doe DO [Primary Care Provider] - Forms: ED Department Discharge Additional Instructions: The following information is given to patients seen in the emergency department who are being discharged to home. This information is to outline your options for follow-up care. We provide all patients seen in our emergency department with a follow-up referral. The need for follow-up, as well as the timing and circumstances, are variable depending upon the specifics of your emergency department visit. If you don't have a primary care physician on staff, we will provide you with a referral. We always advise you to contact your personal physician following an emergency department visit to inform them of the circumstance of the visit and for follow-up with them and/or the need for any referrals to a consulting specialist. The emergency department will also refer you to a specialist when appropriate. This referral assures that you have the opportunity for follow-up care with a specialist. All of these measure are taken in an effort to provide you with optimal care, which includes your follow-up. Under all circumstances we always encourage you to contact your private physician who remains a resource for coordinating your care. When calling for follow-up care, please make the office aware that this follow-up is from your recent emergency room visit. If for any reason you are refused follow-up, please contact the [facility] Emergency Department at and asked to speak to the emergency department charge nurse. - My Orders Last 24 Hours: My Active Orders 08/09/19 08:53 Sodium Chloride 0.9% [Saline Flush] 10 ml FLUSH ASDIRECTED PRN Sodium Chloride 0.9% [Saline Flush] 2.5 ml FLUSH ASDIRECTED PRN Saline Lock Insert [OM.PC] Stat 08/09/19 08:54 UA W/MICROSCOPIC [URIN] Stat 08/09/19 09:05 Sodium Chloride 0.9% [Normal Saline] 1,000 ml IV ASDIRECTED - Assessment/Plan Last 24 Hours: My Active Orders 08/09/19 08:53 Sodium Chloride 0.9% [Saline Flush] 10 ml FLUSH ASDIRECTED PRN Sodium Chloride 0.9% [Saline Flush] 2.5 ml FLUSH ASDIRECTED PRN Saline Lock Insert [OM.PC] Stat 08/09/19 08:54 UA W/MICROSCOPIC [URIN] Stat 08/09/19 09:05 Sodium Chloride 0.9% [Normal Saline] 1,000 ml IV ASDIRECTED
[2019-08-09] MEDS ORDERED: Sodium Chloride 0.9% 1,000 ML IV SCH (09:05)
[2019-08-09] MEDS ORDERED: Ondansetron 4 MG/2 ML SDV IVPUSH ONE (09:22)
[2019-08-09] MEDS ORDERED: Morphine 4 MG/ML Syringe IVPUSH ONE (09:22)
[2019-08-09 09:35] LABS: BLOOD UREA NITROGEN,BUN 9 mg/dL (7.0-18.0); CARBON DIOXIDE,CO2 25.2 mmol/L (21.0-32.0); CHLORIDE,CL 103 mmol/L (98-107); GLUCOSE RANDOM 91 mg/dL (74-106); LIPASE 179 U/L (73-393); POTASSIUM,K 3.9 mmol/L (3.5-5.1); SODIUM,NA 139 mmol/L (136-145)
--- NOTE | 2019-08-09 10:06 | US ---
HISTORY: Right upper quadrant abdominal pain. History of pancreatitis and cholecystitis. TECHNIQUE: Limited abdominal ultrasound. COMPARISON: MRI 07/24/2019, ultrasound 07/23/2019, CT 07/22/2019. FINDINGS: The patient`s previously seen calcified gallstone is not definitively seen on this ultrasound. There is no gallbladder wall thickening nor fluid surrounding the gallbladder. No intrahepatic or extrahepatic biliary duct dilatation. The extrahepatic bile duct measures 3 mm which is within normal limits. No liver mass appreciated. No abnormality involving the right kidney or visualized portions of pancreas. IMPRESSION: 1. Patient`s previously seen gallstone is not definitively seen on this ultrasound. There is no gallbladder wall thickening or surrounding fluid. 2. No biliary ductal dilatation. Dictated by Sudeep Crawley MD @ 08/09/2019 10:05:16 AM Dictated by: Sudeep Crawley MD @ 08/09/2019 10:05:22 (Electronically Signed)
== END 2019-08-09 11:35 ==
LOC: MW.ED 08:47
DX: E80.6 Other disorders of bilirubin metabolism (principal); R10.9 Unspecified abdominal pain; Z79.899 Other long term (current) drug therapy; Z87.891 Personal history of nicotine dependence; Z88.8 Allergy status to other drugs, medicaments and biological substances
CPT/HCPCS: 76705; 80053; 83690; 84703; 85025; 96361; 96374; 96375; 99285; J2270; J2405; J7040; 99284